=== PATIENT | male | born 1980 | race Caucasian/White ===

== ENCOUNTER 2020-07-27 16:46 | Outpatient (CLI) | payer OTHER ==
[2020-07-27 17:28] LABS: BASOPHILS % (AUTO) 0.9 % (0.0-2.0); EOSINOPHILS # (AUTO) 0.2 K/uL (0.0-0.4); EOSINOPHILS % (AUTO) 3.8 % (0.0-4.0); HEMATOCRIT 40.1 % (36-54); HEMOGLOBIN 13.3 g/dL (14.0-18.0); LYMPHOCYTES # (AUTO) 1.3 K/uL (1.0-5.5); LYMPHOCYTES % (AUTO) 24.1 % (20.5-51.5); MEAN CORPUSCULAR HEMOGLOBIN 26 pg (27-31); MEAN CORPUSCULAR HGB CONC 33 % (32-36); MEAN CORPUSCULAR VOLUME 78 fL (79.0-98.0); MONOCYTES # (AUTO) 0.4 K/uL (0.0-1.0); MONOCYTES % (AUTO) 7.7 % (1.7-9.3); NEUTROPHILS # (AUTO) 3.5 K/uL (1.8-7.7); NEUTROPHILS % (AUTO) 63.5 % (40.0-70.0); PLATELET COUNT (AUTO) 213 K/uL (130-430); RED BLOOD CELL COUNT(AUTO) 5.14 MIL/uL (4.2-6.2); RED CELL DISTRIBUTION WIDTH 13.6 % (9.0-15.0); WHITE BLOOD COUNT (AUTO) 5.6 K/uL (4.8-10.8)
[2020-07-27 17:51] LABS: INR 0.9 (0.80-1.20); PROTHROMBIN TIME 9.3 SECS (9.5-12.5)
[2020-07-27 17:59] LABS: D-DIMER < 100 ng/mL (0-400)
[2020-07-27 18:13] LABS: CALCIUM 8.1 mg/dL (8.4-11.0); CREATININE 1.27 mg/dL (0.55-1.30); POTASSIUM 4.3 mmol/L (3.5-5.1)
== END 2020-07-27 19:48 | disposition home or self-care (01) ==
LOC: SLB 16:46
PROVIDERS: ATTEND Internal Medicine
DX: I82.409 Acute embolism and thrombosis of unspecified deep veins of unspecified lower extremity (principal)
CPT/HCPCS: 36415; 80048; 85025; 85379; 85610-TC; 85730-TC

== ENCOUNTER 2020-07-30 12:27 | Outpatient (CLI) | payer OTHER ==
[2020-07-30 13:10] LABS: BASOPHILS % (AUTO) 0.6 % (0.0-2.0); EOSINOPHILS # (AUTO) 0.2 K/uL (0.0-0.4); EOSINOPHILS % (AUTO) 3.2 % (0.0-4.0); HEMOGLOBIN 13.4 g/dL (14.0-18.0); LYMPHOCYTES # (AUTO) 1.3 K/uL (1.0-5.5); LYMPHOCYTES % (AUTO) 19.1 % (20.5-51.5); MEAN CORPUSCULAR HEMOGLOBIN 26 pg (27-31); MEAN CORPUSCULAR HGB CONC 34 % (32-36); MEAN CORPUSCULAR VOLUME 78 fL (79.0-98.0); MONOCYTES # (AUTO) 0.4 K/uL (0.0-1.0); MONOCYTES % (AUTO) 6.2 % (1.7-9.3); NEUTROPHILS % (AUTO) 70.9 % (40.0-70.0); PLATELET COUNT (AUTO) 214 K/uL (130-430); RED BLOOD CELL COUNT(AUTO) 5.15 MIL/uL (4.2-6.2); RED CELL DISTRIBUTION WIDTH 13.6 % (9.0-15.0)
[2020-07-30 13:51] LABS: CALCIUM 8.5 mg/dL (8.4-11.0); CREATININE 1.19 mg/dL (0.55-1.30); POTASSIUM 4.1 mmol/L (3.5-5.1); THYROID STIMULATING HORMONE 1.88 uIu/mL (0.36-3.74); TOTAL BILIRUBIN 0.3 mg/dL (0.0-1.0)
[2020-07-31 08:06] LABS: PROSTATE SPECIFIC AG 0.5 ng/mL (0.0-4.0)
== END 2020-07-30 18:46 | disposition home or self-care (01) ==
LOC: SLB 12:27
PROVIDERS: ATTEND Internal Medicine
DX: Z00.00 Encounter for general adult medical examination without abnormal findings (principal); M79.662 Pain in left lower leg; M79.661 Pain in right lower leg
CPT/HCPCS: 36415; 80053; 80061; 82306; 82607; 83036; 84153; 84403; 84443-TC; 85025; 93970

== ENCOUNTER 2020-08-31 14:45 | Outpatient (CLI) | payer OTHER | END 2020-08-31 20:15 | disposition home or self-care (01) | LOC: SUS 14:45 | PROVIDERS: ATTEND Internal Medicine | DX: I70.292 Other atherosclerosis of native arteries of extremities, left leg (principal); I70.291 Other atherosclerosis of native arteries of extremities, right leg | CPT/HCPCS: 93923 ==

== ENCOUNTER 2020-09-28 15:00 | Outpatient (CLI) | payer OTHER ==
[2020-09-28] MEDS ORDERED: IOHEXOL 350 mgI/mL, 150 ML INFUS..BTL IV ONE (16:20)
[2020-09-28 16:46] LABS: ALBUMIN 1.9 g/dL (3.4-4.8); CREATININE 1.09 mg/dL (0.55-1.30); TOTAL BILIRUBIN 0.3 mg/dL (0.0-1.0)
== END 2020-09-28 20:07 | disposition home or self-care (01) ==
LOC: SLB 15:00
PROVIDERS: ATTEND Internal Medicine
DX: I70.0 Atherosclerosis of aorta (principal); I73.9 Peripheral vascular disease, unspecified
CPT/HCPCS: 36415; 75635; 80053; 80061; Q9967; 76376

== ENCOUNTER 2020-12-03 09:53 | Outpatient (CLI) | payer OTHER ==
[2020-12-03 10:43] LABS: BASOPHILS # (AUTO) 0.1 K/uL (0.0-0.2); BASOPHILS % (AUTO) 0.9 % (0.0-2.0); EOSINOPHILS # (AUTO) 0.2 K/uL (0.0-0.4); EOSINOPHILS % (AUTO) 3.2 % (0.0-4.0); HEMATOCRIT 35.6 % (36-54); LYMPHOCYTES # (AUTO) 1.4 K/uL (1.0-5.5); LYMPHOCYTES % (AUTO) 22.2 % (20.5-51.5); MEAN CORPUSCULAR HEMOGLOBIN 26 pg (27-31); MEAN CORPUSCULAR HGB CONC 34 % (32-36); MEAN CORPUSCULAR VOLUME 78 fL (79.0-98.0); MONOCYTES # (AUTO) 0.5 K/uL (0.0-1.0); MONOCYTES % (AUTO) 7.1 % (1.7-9.3); NEUTROPHILS # (AUTO) 4.3 K/uL (1.8-7.7); NEUTROPHILS % (AUTO) 66.6 % (40.0-70.0); PLATELET COUNT (AUTO) 192 K/uL (130-430); RED CELL DISTRIBUTION WIDTH 14.7 % (9.0-15.0); WHITE BLOOD COUNT (AUTO) 6.5 K/uL (4.8-10.8)
[2020-12-03 10:56] LABS: ALBUMIN 1.6 g/dL (3.4-4.8); CREATININE 1.68 mg/dL (0.55-1.30); POTASSIUM 4.9 mmol/L (3.5-5.1); TOTAL BILIRUBIN 0.2 mg/dL (0.0-1.0)
== END 2020-12-03 20:25 | disposition home or self-care (01) ==
LOC: SLB 09:53
PROVIDERS: ATTEND Internal Medicine
DX: E11.9 Type 2 diabetes mellitus without complications (principal); D64.9 Anemia, unspecified; N17.9 Acute kidney failure, unspecified
CPT/HCPCS: 36415; 80053; 83036; 85025

== ENCOUNTER 2021-01-02 10:07 | Outpatient (CLI) | payer OTHER ==
[2021-01-02 10:32] LABS: BILIRUBIN,URINE NEGATIVE (NEGATIVE); BLOOD, URINE 3+ (NEGATIVE); CLARITY/URINE CLEAR (CLEAR); COLOR,URINE YELLOW (YELLOW); GLUCOSE,URINE 3+ (NEGATIVE); KETONES,URINE NEGATIVE (NEGATIVE); LEUKOCYTE ESTERASE ,URINE NEGATIVE (NEGATIVE); NITRITE, URINE NEGATIVE (NEGATIVE); PROTEIN URINE 3+ (NEGATIVE); UROBILINOGEN,URINE 0.2 (0.2-1.0)
[2021-01-02 10:34] LABS: BASOPHILS # (AUTO) 0.1 K/uL (0.0-0.2); BASOPHILS % (AUTO) 0.8 % (0.0-2.0); EOSINOPHILS # (AUTO) 0.3 K/uL (0.0-0.4); EOSINOPHILS % (AUTO) 4.7 % (0.0-4.0); HEMOGLOBIN 11.4 g/dL (14.0-18.0); LYMPHOCYTES # (AUTO) 1.5 K/uL (1.0-5.5); LYMPHOCYTES % (AUTO) 23.3 % (20.5-51.5); MEAN CORPUSCULAR HEMOGLOBIN 26 pg (27-31); MEAN CORPUSCULAR HGB CONC 33 % (32-36); MEAN CORPUSCULAR VOLUME 79 fL (79.0-98.0); MONOCYTES # (AUTO) 0.6 K/uL (0.0-1.0); MONOCYTES % (AUTO) 8.7 % (1.7-9.3); NEUTROPHILS # (AUTO) 3.9 K/uL (1.8-7.7); NEUTROPHILS % (AUTO) 62.5 % (40.0-70.0); PLATELET COUNT (AUTO) 179 K/uL (130-430); RED BLOOD CELL COUNT(AUTO) 4.31 MIL/uL (4.2-6.2); RED CELL DISTRIBUTION WIDTH 14.4 % (9.0-15.0); WHITE BLOOD COUNT (AUTO) 6.3 K/uL (4.8-10.8)
[2021-01-02 10:49] LABS: ALBUMIN 1.6 g/dL (3.4-4.8); BILIRUBIN,DIRECT 0.1 mg/dL (0.0-0.3); CALCIUM 7.6 mg/dL (8.4-11.0); CREATININE 1.6 mg/dL (0.55-1.30); POTASSIUM 4.4 mmol/L (3.5-5.1); TOTAL BILIRUBIN 0.2 mg/dL (0.0-1.0); URIC ACID 5.7 mg/dL (2.4-7.0)
[2021-01-02 10:59] LABS: BACTERIA,URINE RARE /HPF (None Seen); HYALINE CASTS, URINE 0-10 /LPF (None Seen); WBC,URINE 0-3 /HPF (0-3)
[2021-01-02 11:22] LABS: CKMB RELATIVE INDEX 0.6 (0.0-2.9); CREATINE KINASE MB 2.3 ng/mL (0-3.6)
== END 2021-01-02 19:56 | disposition home or self-care (01) ==
LOC: SLB 10:07
PROVIDERS: ATTEND Internal Medicine
DX: E11.65 Type 2 diabetes mellitus with hyperglycemia (principal); I10 Essential (primary) hypertension; E78.5 Hyperlipidemia, unspecified; E66.3 Overweight; E55.9 Vitamin D deficiency, unspecified
CPT/HCPCS: 36415; 80053; 80061; 81000; 82248; 82306; 82550; 84100; 84403; 84550; 85025

== ENCOUNTER 2021-02-02 13:09 | Outpatient (CLI) | payer OTHER | END 2021-02-02 15:47 | disposition home or self-care (01) | LOC: SUS 13:09 | PROVIDERS: ATTEND Internal Medicine | DX: E11.21 Type 2 diabetes mellitus with diabetic nephropathy (principal); N32.89 Other specified disorders of bladder | CPT/HCPCS: 76770 ==

== ENCOUNTER 2021-02-25 07:57 | Outpatient (CLI) | payer OTHER ==
[2021-02-25 08:43] LABS: BASOPHILS % (AUTO) 0.4 % (0.0-2.0); EOSINOPHILS # (AUTO) 0.2 K/uL (0.0-0.4); EOSINOPHILS % (AUTO) 2.8 % (0.0-4.0); HEMATOCRIT 33.3 % (36-54); HEMOGLOBIN 11.3 g/dL (14.0-18.0); LYMPHOCYTES # (AUTO) 1.7 K/uL (1.0-5.5); LYMPHOCYTES % (AUTO) 23.2 % (20.5-51.5); MEAN CORPUSCULAR HEMOGLOBIN 26 pg (27-31); MEAN CORPUSCULAR HGB CONC 34 % (32-36); MEAN CORPUSCULAR VOLUME 77 fL (79.0-98.0); MONOCYTES # (AUTO) 0.6 K/uL (0.0-1.0); MONOCYTES % (AUTO) 8.4 % (1.7-9.3); NEUTROPHILS # (AUTO) 4.7 K/uL (1.8-7.7); NEUTROPHILS % (AUTO) 65.2 % (40.0-70.0); PLATELET COUNT (AUTO) 216 K/uL (130-430); RED CELL DISTRIBUTION WIDTH 14.5 % (9.0-15.0); WHITE BLOOD COUNT (AUTO) 7.2 K/uL (4.8-10.8)
[2021-02-25 09:03] LABS: ALBUMIN 1.5 g/dL (3.4-4.8); CREATININE 1.51 mg/dL (0.55-1.30); PHOSPHORUS 3.8 mg/dL (2.7-4.5); POTASSIUM 3.2 mmol/L (3.5-5.1); TOTAL BILIRUBIN 0.2 mg/dL (0.0-1.0)
[2021-02-25 09:10] LABS: BILIRUBIN,URINE NEGATIVE (NEGATIVE); BLOOD, URINE 2+ (NEGATIVE); CLARITY/URINE CLEAR (CLEAR); COLOR,URINE YELLOW (YELLOW); GLUCOSE,URINE 3+ (NEGATIVE); KETONES,URINE NEGATIVE (NEGATIVE); LEUKOCYTE ESTERASE ,URINE NEGATIVE (NEGATIVE); NITRITE, URINE NEGATIVE (NEGATIVE); PROTEIN URINE 3+ (NEGATIVE); UROBILINOGEN,URINE 0.2 (0.2-1.0)
[2021-02-25 09:25] LABS: BACTERIA,URINE RARE /HPF (None Seen); WBC,URINE 0-3 /HPF (0-3)
== END 2021-02-25 21:41 | disposition home or self-care (01) ==
LOC: SLB 07:57
PROVIDERS: ATTEND Internal Medicine
DX: I12.9 Hypertensive chronic kidney disease with stage 1 through stage 4 chronic kidney disease, or unspecified chronic kidney disease (principal); E11.22 Type 2 diabetes mellitus with diabetic chronic kidney disease; N18.30 Chronic kidney disease, stage 3 unspecified
CPT/HCPCS: 36415; 80053; 81000; 82043; 82570; 83036; 83735; 84100; 84302; 85025

== ENCOUNTER 2021-04-02 11:37 | Outpatient (CLI) | payer OTHER ==
[2021-04-02 12:37] LABS: BASOPHILS # (AUTO) 0.1 K/uL (0.0-0.2); BASOPHILS % (AUTO) 0.7 % (0.0-2.0); EOSINOPHILS # (AUTO) 0.2 K/uL (0.0-0.4); EOSINOPHILS % (AUTO) 3.1 % (0.0-4.0); HEMOGLOBIN 11.5 g/dL (14.0-18.0); LYMPHOCYTES # (AUTO) 1.3 K/uL (1.0-5.5); LYMPHOCYTES % (AUTO) 17.2 % (20.5-51.5); MEAN CORPUSCULAR HEMOGLOBIN 27 pg (27-31); MEAN CORPUSCULAR HGB CONC 34 % (32-36); MEAN CORPUSCULAR VOLUME 78 fL (79.0-98.0); MONOCYTES # (AUTO) 0.5 K/uL (0.0-1.0); MONOCYTES % (AUTO) 6.5 % (1.7-9.3); NEUTROPHILS # (AUTO) 5.5 K/uL (1.8-7.7); NEUTROPHILS % (AUTO) 72.5 % (40.0-70.0); PLATELET COUNT (AUTO) 174 K/uL (130-430); RED BLOOD CELL COUNT(AUTO) 4.34 MIL/uL (4.2-6.2); RED CELL DISTRIBUTION WIDTH 14.7 % (9.0-15.0); WHITE BLOOD COUNT (AUTO) 7.6 K/uL (4.8-10.8)
== END 2021-04-02 14:00 | disposition home or self-care (01) ==
LOC: SLB 11:37
PROVIDERS: ATTEND Internal Medicine
DX: E11.9 Type 2 diabetes mellitus without complications (principal); D64.9 Anemia, unspecified
CPT/HCPCS: 36415; 83036; 85025

== ENCOUNTER 2021-05-01 19:41 | Emergency (ER) | payer OTHER ==
[~2021-05-01] VITALS: Ht 177.8 cm; Wt 72.1 kg
[2021-05-01 20:06] VITALS: BP_SYST 148
--- NOTE | 2021-05-01 20:06 | NUR ---
PATIENT TRIAGED AND PLACED IN WAITING ROOM. VSS. NO VISUAL DISTRESS AT THIS TIME.
--- NOTE | 2021-05-01 20:12 | NUR ---
DR. ISAACS AT BEDSIDE FOR EVALUATION.
--- NOTE | 2021-05-01 20:30 | NUR ---
PATIENT AAOX4 AND AMBULATORY FROM HOME C/O S/P FALL YESTERDAY, STATES MISSED A STEP + SWELLING. CURRENTLY STATING 8/10 ON THE PAIN SCALE. VSS.
[2021-05-01] MEDS ORDERED: IBUP-1969 PO (21:59)
[2021-05-01] MEDS ORDERED: HYDROcodone/ACETAMIN 5-325 MG TAB (NORCO/ VICODIN) PO ONE (22:00)
--- NOTE | 2021-05-01 22:00 | NUR ---
SPLINT PLACED TO RIGHT HAND. PULSES WNL.
[2021-05-01 22:11] VITALS: BP_SYST 148
--- NOTE | 2021-05-01 22:18 | NUR ---
Patient given written and verbal discharge instructions and verbalizes understanding. DR. SHITAL REGALADO MD discussed with patient the results and treatment provided. Patient in stable condition. ID arm band removed. Rx of IBUPROFEN given. Patient educated on pain management and to follow up with PMD. Pain Scale 0/10. Opportunity for questions provided and answered. Medication side effect fact sheet provided.
== END 2021-05-01 22:18 | disposition home or self-care (01) ==
LOC: SED 19:41
DX: S62.231A Other displaced fracture of base of first metacarpal bone, right hand, initial encounter for closed fracture (principal); W10.9XXA Fall (on) (from) unspecified stairs and steps, initial encounter; Y93.89 Activity, other specified; Y92.89 Other specified places as the place of occurrence of the external cause; Y99.8 Other external cause status
CPT/HCPCS: 99283

== ENCOUNTER 2021-06-04 14:57 | Outpatient (CLI) | payer OTHER ==
[~2021-06-04 14:57] MED LIST: IBUP-1969 PO
[2021-06-04 16:04] LABS: BASOPHILS # (AUTO) 0.1 K/uL (0.0-0.2); BASOPHILS % (AUTO) 0.9 % (0.0-2.0); EOSINOPHILS # (AUTO) 0.2 K/uL (0.0-0.4); EOSINOPHILS % (AUTO) 2.6 % (0.0-4.0); HEMATOCRIT 33.6 % (36-54); HEMOGLOBIN 11.1 g/dL (14.0-18.0); LYMPHOCYTES % (AUTO) 16.7 % (20.5-51.5); MEAN CORPUSCULAR HEMOGLOBIN 26 pg (27-31); MEAN CORPUSCULAR HGB CONC 33 % (32-36); MEAN CORPUSCULAR VOLUME 79 fL (79.0-98.0); MONOCYTES # (AUTO) 0.4 K/uL (0.0-1.0); MONOCYTES % (AUTO) 6.4 % (1.7-9.3); NEUTROPHILS # (AUTO) 4.5 K/uL (1.8-7.7); NEUTROPHILS % (AUTO) 73.4 % (40.0-70.0); PLATELET COUNT (AUTO) 192 K/uL (130-430); RED BLOOD CELL COUNT(AUTO) 4.23 MIL/uL (4.2-6.2); RED CELL DISTRIBUTION WIDTH 14.6 % (9.0-15.0); WHITE BLOOD COUNT (AUTO) 6.2 K/uL (4.8-10.8)
[2021-06-04 16:09] LABS: BILIRUBIN,URINE NEGATIVE (NEGATIVE); BLOOD, URINE 2+ (NEGATIVE); COLOR,URINE YELLOW (YELLOW); GLUCOSE,URINE 1+ (NEGATIVE); KETONES,URINE NEGATIVE (NEGATIVE); LEUKOCYTE ESTERASE ,URINE NEGATIVE (NEGATIVE); NITRITE, URINE NEGATIVE (NEGATIVE); PROTEIN URINE 2+ (NEGATIVE); UROBILINOGEN,URINE 0.2 (0.2-1.0)
[2021-06-04 16:25] LABS: CALCIUM 8.3 mg/dL (8.4-11.0); CREATININE 2.02 mg/dL (0.55-1.30); POTASSIUM 4.2 mmol/L (3.5-5.1); URIC ACID 5.6 mg/dL (2.4-7.0)
[2021-06-04 16:51] LABS: CLARITY/URINE HAZY (CLEAR)
[2021-06-04 16:55] LABS: WBC,URINE 0-3 /HPF (0-3)
[2021-06-04 16:56] LABS: BACTERIA,URINE FEW /HPF (None Seen)
== END 2021-06-04 20:27 | disposition home or self-care (01) ==
LOC: SLB 14:57
PROVIDERS: ATTEND Internal Medicine
DX: D64.9 Anemia, unspecified (principal)
CPT/HCPCS: 36415; 80048; 81000; 82607; 83540; 83550; 83880; 84550; 85025

== ENCOUNTER 2021-08-03 17:42 | Emergency (ER) | payer OTHER, SELFPAY ==
[~2021-08-03] VITALS: Ht 177.8 cm; Wt 78.5 kg
--- NOTE | 2021-08-03 17:50 | NUR ---
BROUGHT BACK TO HALLWAY BED AND TRIAGED. REPORT GIVEN TO DARLIN
[2021-08-03] MEDS ORDERED: POLYTRIM EACH EYE (17:59)
[2021-08-03] MEDS ORDERED: IBUP-1969 PO (17:59)
[2021-08-03] MEDS ORDERED: CEPH250C PO (17:59)
[2021-08-03 18:00] VITALS: BP_SYST 179
--- NOTE | 2021-08-03 18:00 | NUR ---
DR BAILEY AT BEDSIDE FOR EVALUATION
--- NOTE | 2021-08-03 18:20 | NUR ---
pt. came in with swelling to left eye, states woke up this morning and it was swollen and has worsened through the day, vision blurry in that eye, states it is uncomfortable but not painful
[2021-08-03 19:31] VITALS: BP_SYST 152
--- NOTE | 2021-08-03 19:31 | NUR ---
Patient given written and verbal discharge instructions and verbalizes understanding. ER MD discussed with patient the results and treatment provided. Patient in stable condition. ID arm band removed. Rx of KEFLEX, IBUPROFEN, POLYTRIM given. Patient educated on pain management and to follow up with PMD. Pain Scale 0/10 Opportunity for questions provided and answered. Medication side effect fact sheet provided.
== END 2021-08-03 19:31 | disposition home or self-care (01) ==
LOC: SED 17:42
DX: H01.004 Unspecified blepharitis left upper eyelid (principal); Z79.899 Other long term (current) drug therapy
CPT/HCPCS: 82962; 99283

== ENCOUNTER 2021-08-13 09:19 | Outpatient (CLI) | payer OTHER ==
[~2021-08-13 09:19] MED LIST changes: +CEPH250C PO; +POLYTRIM EACH EYE
[2021-08-13 10:43] LABS: ALBUMIN 1.7 g/dL (3.4-4.8); BASOPHILS # (AUTO) 0.1 K/uL (0.0-0.2); BASOPHILS % (AUTO) 0.9 % (0.0-2.0); CALCIUM 7.6 mg/dL (8.4-11.0); CREATININE 2.27 mg/dL (0.55-1.30); EOSINOPHILS # (AUTO) 0.3 K/uL (0.0-0.4); EOSINOPHILS % (AUTO) 5.4 % (0.0-4.0); HEMATOCRIT 29.6 % (36-54); HEMOGLOBIN 9.6 g/dL (14.0-18.0); LYMPHOCYTES # (AUTO) 1.4 K/uL (1.0-5.5); LYMPHOCYTES % (AUTO) 22.9 % (20.5-51.5); MEAN CORPUSCULAR HEMOGLOBIN 26 pg (27-31); MEAN CORPUSCULAR HGB CONC 32 % (32-36); MEAN CORPUSCULAR VOLUME 80 fL (79.0-98.0); MONOCYTES # (AUTO) 0.5 K/uL (0.0-1.0); MONOCYTES % (AUTO) 7.5 % (1.7-9.3); NEUTROPHILS % (AUTO) 63.3 % (40.0-70.0); PLATELET COUNT (AUTO) 210 K/uL (130-430); RED BLOOD CELL COUNT(AUTO) 3.71 MIL/uL (4.2-6.2); RED CELL DISTRIBUTION WIDTH 15.5 % (9.0-15.0); TOTAL BILIRUBIN 0.1 mg/dL (0.0-1.0); WHITE BLOOD COUNT (AUTO) 6.3 K/uL (4.8-10.8)
== END 2021-08-14 19:28 | disposition home or self-care (01) ==
LOC: SLB 09:19
PROVIDERS: ATTEND Internal Medicine
DX: E11.65 Type 2 diabetes mellitus with hyperglycemia (principal); E11.21 Type 2 diabetes mellitus with diabetic nephropathy; E78.5 Hyperlipidemia, unspecified; N04.0 Nephrotic syndrome with minor glomerular abnormality; I10 Essential (primary) hypertension
CPT/HCPCS: 36415; 80053; 80061; 82306; 82607; 83036; 85025

== ENCOUNTER 2021-12-03 06:41 | Outpatient (CLI) | payer OTHER ==
[2021-12-03 07:37] LABS: BILIRUBIN,URINE NEGATIVE (NEGATIVE); BLOOD, URINE 2+ (NEGATIVE); CLARITY/URINE CLEAR (CLEAR); COLOR,URINE YELLOW (YELLOW); GLUCOSE,URINE 2+ (NEGATIVE); KETONES,URINE NEGATIVE (NEGATIVE); LEUKOCYTE ESTERASE ,URINE NEGATIVE (NEGATIVE); NITRITE, URINE NEGATIVE (NEGATIVE); PROTEIN URINE 3+ (NEGATIVE); UROBILINOGEN,URINE 0.2 (0.2-1.0)
[2021-12-03 08:17] LABS: ALANINE AMINOTRANSFERASE 29 U/L (12-78); ALBUMIN 1.8 g/dL (3.4-4.8); ANION GAP 8 (5-15); ASPARTATE AMINOTRANSFERASE 24 U/L (10-37); CALCIUM 7.1 mg/dL (8.4-11.0); CHLORIDE 110 mmol/L (98-107); CREATININE 3.28 mg/dL (0.55-1.30); GLUCOSE 93 mg/dL (70-99); POTASSIUM 4.2 mmol/L (3.5-5.1); SODIUM SERUM 138 mmol/L (136-145); THYROID STIMULATING HORMONE 2.65 uIu/mL (0.36-3.74); TOTAL BILIRUBIN < 0.1 mg/dL (0.0-1.0); UREA NITROGEN, BLOOD 55 mg/dL (8-21)
[2021-12-03 08:18] LABS: GFR AFRICAN AMERICAN 27 mL/min (>90)
[2021-12-03 08:21] LABS: TRIGLYCERIDES 60 mg/dL (30-150)
[2021-12-03 08:22] LABS: CHOLESTEROL 234 mg/dL (<200); HDL CHOLESTEROL 75 mg/dL (>45); LDL CHOLESTEROL 131 mg/dL (<100)
[2021-12-03 08:34] LABS: BASOPHILS # (AUTO) 0.1 K/uL (0.0-0.2); BASOPHILS % (AUTO) 0.9 % (0.0-2.0); EOSINOPHILS # (AUTO) 0.5 K/uL (0.0-0.4); EOSINOPHILS % (AUTO) 6.3 % (0.0-4.0); HEMATOCRIT 30.9 % (36-54); HEMOGLOBIN 10.1 g/dL (14.0-18.0); LYMPHOCYTES # (AUTO) 1.9 K/uL (1.0-5.5); LYMPHOCYTES % (AUTO) 26.4 % (20.5-51.5); MEAN CORPUSCULAR HEMOGLOBIN 26 pg (27-31); MEAN CORPUSCULAR HGB CONC 33 % (32-36); MEAN CORPUSCULAR VOLUME 78 fL (79.0-98.0); MONOCYTES # (AUTO) 0.5 K/uL (0.0-1.0); MONOCYTES % (AUTO) 6.9 % (1.7-9.3); NEUTROPHILS # (AUTO) 4.2 K/uL (1.8-7.7); NEUTROPHILS % (AUTO) 59.5 % (40.0-70.0); PLATELET COUNT (AUTO) 182 K/uL (130-430); RED BLOOD CELL COUNT(AUTO) 3.94 MIL/uL (4.2-6.2); RED CELL DISTRIBUTION WIDTH 15.8 % (9.0-15.0); WHITE BLOOD COUNT (AUTO) 7.1 K/uL (4.8-10.8)
[2021-12-03 09:55] LABS: BACTERIA,URINE FEW /HPF (None Seen); MUCUS,URINE 1+ /LPF (None Seen)
== END 2021-12-03 20:48 | disposition home or self-care (01) ==
LOC: SLB 06:41
PROVIDERS: ATTEND Specialist
DX: I12.9 Hypertensive chronic kidney disease with stage 1 through stage 4 chronic kidney disease, or unspecified chronic kidney disease (principal); E11.22 Type 2 diabetes mellitus with diabetic chronic kidney disease; N18.32 Chronic kidney disease, stage 3b; E78.2 Mixed hyperlipidemia; R60.0 Localized edema
CPT/HCPCS: 36415; 80053; 80061; 81000; 83036; 84439; 84443; 85025

== ENCOUNTER 2021-12-12 20:38 | Emergency (ER) | payer OTHER ==
[~2021-12-12] VITALS: Ht 177.8 cm; Wt 89.8 kg
[2021-12-12 21:07] VITALS: BP_SYST 160
--- NOTE | 2021-12-12 21:55 | NUR ---
Patient to ER bed 07 to gown for evaluation. Side rails up. Report given to SAMAN FLANAGAN
--- NOTE | 2021-12-12 22:11 | NUR ---
41 y/o M, ambulated to ED s/p fall. Pt tripped and landed on R forearm. Able to move extremity, but is c/o pain during movement. Appears in no acute distress. Breathing adequately on RA. at bedside.
[2021-12-12] MEDS ORDERED: OXYCODONE/ACETAMINOPHEN 5-325 TABLET PO ONE (23:30)
--- NOTE | 2021-12-12 23:45 | NUR ---
FABRICIO Marshall at bedside examining patient.
[2021-12-12] MEDS ORDERED: HYDR-3927 PO (23:53)
[2021-12-12] MEDS ORDERED: IBUP-1969 PO (23:53)
--- NOTE | 2021-12-13 00:12 | NUR ---
Patient given written and verbal discharge instructions and verbalizes understanding. ER MD Mcdowell discussed with patient the results and treatment provided. Patient in stable condition. ID arm band removed. Rx of [place] and Ibuprofen sent to pharmacy of choice. Patient educated on pain management and to follow up with PMD. Opportunity for questions provided and answered. Medication side effect fact sheet provided.
[2021-12-13 00:14] VITALS: BP_SYST 149
== END 2021-12-13 00:14 | disposition home or self-care (01) ==
LOC: SED 20:38
DX: S52.521A Torus fracture of lower end of right radius, initial encounter for closed fracture (principal); Z79.899 Other long term (current) drug therapy; W01.0XXA Fall on same level from slipping, tripping and stumbling without subsequent striking against object, initial encounter; Y93.89 Activity, other specified; Y92.89 Other specified places as the place of occurrence of the external cause; Y99.8 Other external cause status
CPT/HCPCS: 73090; 99283

== ENCOUNTER 2022-03-03 11:19 | Outpatient (CLI) | payer OTHER ==
[~2022-03-03 11:19] MED LIST changes: +HYDR-3927 PO
[2022-03-03 12:11] LABS: BASOPHILS # (AUTO) 0.1 K/uL (0.0-0.2); BASOPHILS % (AUTO) 0.9 % (0.0-2.0); EOSINOPHILS # (AUTO) 0.5 K/uL (0.0-0.4); EOSINOPHILS % (AUTO) 7.8 % (0.0-4.0); HEMATOCRIT 28.4 % (36-54); HEMOGLOBIN 9.3 g/dL (14.0-18.0); LYMPHOCYTES # (AUTO) 1.2 K/uL (1.0-5.5); LYMPHOCYTES % (AUTO) 18.9 % (20.5-51.5); MEAN CORPUSCULAR HEMOGLOBIN 26 pg (27-31); MEAN CORPUSCULAR HGB CONC 33 % (32-36); MEAN CORPUSCULAR VOLUME 79 fL (79.0-98.0); MONOCYTES # (AUTO) 0.5 K/uL (0.0-1.0); MONOCYTES % (AUTO) 7.6 % (1.7-9.3); NEUTROPHILS # (AUTO) 4.2 K/uL (1.8-7.7); NEUTROPHILS % (AUTO) 64.8 % (40.0-70.0); PLATELET COUNT (AUTO) 175 K/uL (130-430); RED BLOOD CELL COUNT(AUTO) 3.61 MIL/uL (4.2-6.2); WHITE BLOOD COUNT (AUTO) 6.4 K/uL (4.8-10.8)
[2022-03-03 12:30] LABS: ALBUMIN 1.6 g/dL (3.4-4.8); CALCIUM 7.8 mg/dL (8.4-11.0); CREATININE 4.05 mg/dL (0.55-1.30); POTASSIUM 4.8 mmol/L (3.5-5.1); THYROID STIMULATING HORMONE 3.65 uIu/mL (0.36-3.74); TOTAL BILIRUBIN 0.1 mg/dL (0.0-1.0)
[2022-03-06 15:31] LABS: HEMOGLOBIN A1C 6.8 % (4.8-5.6)
== END 2022-03-03 19:07 | disposition home or self-care (01) ==
LOC: SLB 11:19
PROVIDERS: ATTEND Internal Medicine
DX: E11.21 Type 2 diabetes mellitus with diabetic nephropathy (principal); N04.0 Nephrotic syndrome with minor glomerular abnormality; E03.9 Hypothyroidism, unspecified; E55.9 Vitamin D deficiency, unspecified; E11.649 Type 2 diabetes mellitus with hypoglycemia without coma
CPT/HCPCS: 36415; 80053; 80061; 82306; 82607; 83036; 84443; 85025

== ENCOUNTER 2022-06-10 08:24 | Outpatient (CLI) | payer OTHER ==
[2022-06-10 09:27] LABS: BASOPHILS # (AUTO) 0.1 K/uL (0.0-0.2); BASOPHILS % (AUTO) 0.9 % (0.0-2.0); EOSINOPHILS # (AUTO) 0.6 K/uL (0.0-0.4); HEMATOCRIT 26.2 % (36-54); HEMOGLOBIN 8.5 g/dL (14.0-18.0); LYMPHOCYTES # (AUTO) 0.8 K/uL (1.0-5.5); LYMPHOCYTES % (AUTO) 14.7 % (20.5-51.5); MEAN CORPUSCULAR HEMOGLOBIN 26 pg (27-31); MEAN CORPUSCULAR HGB CONC 32 % (32-36); MEAN CORPUSCULAR VOLUME 79 fL (79.0-98.0); MONOCYTES # (AUTO) 0.5 K/uL (0.0-1.0); MONOCYTES % (AUTO) 8.9 % (1.7-9.3); NEUTROPHILS # (AUTO) 3.7 K/uL (1.8-7.7); NEUTROPHILS % (AUTO) 65.5 % (40.0-70.0); PLATELET COUNT (AUTO) 151 K/uL (130-430); RED BLOOD CELL COUNT(AUTO) 3.31 MIL/uL (4.2-6.2); RED CELL DISTRIBUTION WIDTH 15.7 % (9.0-15.0); WHITE BLOOD COUNT (AUTO) 5.6 K/uL (4.8-10.8)
[2022-06-10 09:47] LABS: ALBUMIN 1.9 g/dL (3.4-4.8); CALCIUM 7.2 mg/dL (8.4-11.0); CREATININE 5.75 mg/dL (0.55-1.30); THYROID STIMULATING HORMONE 3.13 uIu/mL (0.34-4.82); TOTAL BILIRUBIN 0.2 mg/dL (0.0-1.0)
== END 2022-06-10 19:53 | disposition home or self-care (01) ==
LOC: SLB 08:24
PROVIDERS: ATTEND Internal Medicine
DX: E11.65 Type 2 diabetes mellitus with hyperglycemia (principal); E78.5 Hyperlipidemia, unspecified; E11.21 Type 2 diabetes mellitus with diabetic nephropathy; N04.0 Nephrotic syndrome with minor glomerular abnormality; I10 Essential (primary) hypertension
CPT/HCPCS: 36415; 80053; 80061; 83036; 84443; 85025

== ENCOUNTER 2022-06-13 11:07 | Inpatient (IN) | payer OTHER ==
[2022-06-13] MEDS ORDERED: INSULIN REGULAR, HUMAN 100 UNITS/ML, 3 ML VIAL (humuLIN R) SUBCUT PRN (17:15)
[2022-06-13] MEDS ORDERED: DEXTROSE 50% JECT 50 ML DISP.SYRIN IVP PRN (17:15)
[2022-06-13] MEDS ORDERED: SITA100T11 PO (20:34)
[2022-06-13] MEDS ORDERED: CETI1TAB2 PO (20:34)
[2022-06-13] MEDS ORDERED: ROSU40TA PO (20:34)
[2022-06-13] MEDS ORDERED: GLIP5TAB26 PO (20:34)
[2022-06-13] MEDS ORDERED: CALC0.258 PO (20:34)
[2022-06-13] MEDS ORDERED: COR6.25 PO (20:34)
[2022-06-13] MEDS ORDERED: FURO-149 PO (20:34)
[2022-06-13] MEDS ORDERED: DAPA10TA PO (20:34)
[2022-06-13] MEDS ORDERED: FURO-150 PO (20:34)
[2022-06-13] MEDS ORDERED: FINE10TA PO (20:34)
[2022-06-14 07:51] LABS: BASOPHILS % (AUTO) 0.8 % (0.0-2.0); EOSINOPHILS # (AUTO) 0.4 K/uL (0.0-0.4); EOSINOPHILS % (AUTO) 7.4 % (0.0-4.0); HEMOGLOBIN 7.9 g/dL (14.0-18.0); LYMPHOCYTES # (AUTO) 1.3 K/uL (1.0-5.5); MEAN CORPUSCULAR HEMOGLOBIN 26 pg (27-31); MEAN CORPUSCULAR HGB CONC 33 % (32-36); MEAN CORPUSCULAR VOLUME 78 fL (79.0-98.0); MONOCYTES # (AUTO) 0.6 K/uL (0.0-1.0); MONOCYTES % (AUTO) 10.3 % (1.7-9.3); NEUTROPHILS # (AUTO) 3.4 K/uL (1.8-7.7); NEUTROPHILS % (AUTO) 59.5 % (40.0-70.0); PLATELET COUNT (AUTO) 146 K/uL (130-430); RED BLOOD CELL COUNT(AUTO) 3.07 MIL/uL (4.2-6.2); RED CELL DISTRIBUTION WIDTH 15.6 % (9.0-15.0); WHITE BLOOD COUNT (AUTO) 5.8 K/uL (4.8-10.8)
[2022-06-14 08:12] LABS: CALCIUM 7.6 mg/dL (8.4-11.0); CREATININE 6.26 mg/dL (0.55-1.30); PHOSPHORUS 7.7 mg/dL (2.7-4.5)
[2022-06-14 08:18] LABS: INR 0.9 (0.80-1.20); PROTHROMBIN TIME 9.9 SECS (9.5-12.5)
[2022-06-20] MEDS ORDERED: GLIP5TAB26 PO (13:45)
[2022-06-20] MEDS ORDERED: ASPI-1457 PO (13:45)
[2022-06-20] MEDS ORDERED: NEPH PO (13:45)
[2022-06-20] MEDS ORDERED: SEVE800T8 PO (13:45)
== END 2022-06-20 17:10 | disposition home or self-care (01) | DRG 673 ==
LOC: SMU 20:03
PROVIDERS: ADMIT Internal Medicine; ATTEND Internal Medicine
PROC: 5A1D70Z Performance of Urinary Filtration, Intermittent, Less than 6 Hours Per Day (ICD-10-PCS; principal; 2022-06-15)
PROC: 0JH63XZ Insertion of Tunneled Vascular Access Device into Chest Subcutaneous Tissue and Fascia, Percutaneous Approach (ICD-10-PCS; 2022-06-17)
PROC: 5A1D70Z Performance of Urinary Filtration, Intermittent, Less than 6 Hours Per Day (ICD-10-PCS; 2022-06-17)
PROC: 30233N1 Transfusion of Nonautologous Red Blood Cells into Peripheral Vein, Percutaneous Approach (ICD-10-PCS; 2022-06-17)
PROC: 02H633Z Insertion of Infusion Device into Right Atrium, Percutaneous Approach (ICD-10-PCS; 2022-06-17)
PROC: B5181ZA Fluoroscopy of Superior Vena Cava using Low Osmolar Contrast, Guidance (ICD-10-PCS; 2022-06-17)
PROC: B548ZZA Ultrasonography of Superior Vena Cava, Guidance (ICD-10-PCS; 2022-06-17)
PROC: 5A1D70Z Performance of Urinary Filtration, Intermittent, Less than 6 Hours Per Day (ICD-10-PCS; 2022-06-19)
DX: N17.9 Acute kidney failure, unspecified (principal); E43 Unspecified severe protein-calorie malnutrition; I12.0 Hypertensive chronic kidney disease with stage 5 chronic kidney disease or end stage renal disease; E87.20 Acidosis, unspecified; E78.5 Hyperlipidemia, unspecified; E11.22 Type 2 diabetes mellitus with diabetic chronic kidney disease; N18.6 End stage renal disease; E83.39 Other disorders of phosphorus metabolism; D63.1 Anemia in chronic kidney disease; Z79.899 Other long term (current) drug therapy; Z99.2 Dependence on renal dialysis; Z79.82 Long term (current) use of aspirin
CPT/HCPCS: 36415; 80048; 84100; 85025; 85610-TC; 85730-TC

== ENCOUNTER 2022-06-13 20:03 | Inpatient (IN) | payer OTHER ==
[~2022-06-13] VITALS: Ht 177.8 cm; Wt 86.6 kg
[2022-06-13] MEDS ORDERED: FINE10TA PO (20:34)
[2022-06-13] MEDS ORDERED: CETI1TAB2 PO (20:34)
[2022-06-13] MEDS ORDERED: FURO-150 PO (20:34)
[2022-06-13] MEDS ORDERED: CALC0.258 PO (20:34)
[2022-06-13] MEDS ORDERED: COR6.25 PO (20:34)
[2022-06-13] MEDS ORDERED: SITA100T11 PO (20:34)
[2022-06-13] MEDS ORDERED: FURO-149 PO (20:34)
[2022-06-13] MEDS ORDERED: GLIP5TAB26 PO (20:34)
[2022-06-13] MEDS ORDERED: ROSU40TA PO (20:34)
[2022-06-13] MEDS ORDERED: DAPA10TA PO (20:34)
[2022-06-13 20:37] VITALS: BP_SYST 165
--- NOTE | 2022-06-13 20:45 | NUR ---
Paged Dr Medina for admit order
[2022-06-13] MEDS ORDERED: DEXTROSE 50% JECT 50 ML DISP.SYRIN IVP ONE (21:00)
[2022-06-13] MEDS ORDERED: INSULIN REGULAR, HUMAN 100 UNITS/ML, 3 ML VIAL (humuLIN R) SUBCUT PRN (21:00)
--- NOTE | 2022-06-13 21:09 | NUR ---
Consultation Paged Reason for Consultation: ESRD Was consult called: Y Person who was notified: Ariadne Consulting Physician: Dr. Appiah Ordering Physician: Dr. Medina
[2022-06-13] MEDS ORDERED: LORATADINE 10 MG TABLET PO PRN (21:30)
[2022-06-13 21:47] LABS: BILIRUBIN,URINE NEGATIVE (NEGATIVE); BLOOD, URINE 2+ (NEGATIVE); COLOR,URINE YELLOW (YELLOW); GLUCOSE,URINE 1+ (NEGATIVE); KETONES,URINE NEGATIVE (NEGATIVE); LEUKOCYTE ESTERASE ,URINE NEGATIVE (NEGATIVE); NITRITE, URINE NEGATIVE (NEGATIVE); PROTEIN URINE 3+ (NEGATIVE); UROBILINOGEN,URINE 0.2 (0.2-1.0)
[2022-06-13 22:03] LABS: CLARITY/URINE SLIGHTLY HAZY (CLEAR)
[2022-06-13 22:09] LABS: BACTERIA,URINE FEW /HPF (None Seen); COARSE GRANULAR CASTS,URINE 0-10 /LPF (None Seen)
[2022-06-13 22:10] LABS: MUCUS,URINE 1+ /LPF (None Seen)
[2022-06-13] MEDS: glipiZIDE XL 5 MG TAB ( GLUCOTROL XL) PO SCH (23:34)
[2022-06-13] MEDS: CARVEDILOL 6.25 MG TABLET (COREG) PO SCH (23:34)
[2022-06-14] VITALS: BP_SYST 159
--- NOTE | 2022-06-14 06:04 | NUR ---
Consultation Paged Reason for Consultation: Tunnelled HD Catheter Was consult called: Y Person who was notified: Mark Consulting Physician: Dr. Garcia Ordering Physician: Dr. Medina
--- NOTE | 2022-06-14 07:50 | NUR ---
Alert and oriented x4 with VSS. Note eMAR and flowsheets this shift. PBS with SSI as MD ordered. Call light & personal items within pt reach and safety maintained. Bed alarm in place and properly functioning for safety. Will continue POC and report to oncoming nurse. Note consult for surgeon- this RN to speak with MD and he voiced he would be around and asked if patient already had access, patient without HD access at this time.
--- NOTE | 2022-06-14 08:00 | NUR ---
RECEIVED PATIENT FROM PM NURSE, AWAKE AND ORIENTED X 4 , ABLE TO VERBALIZE NEEDS , NO C/O PAIN OR DISCOMFORT AT THIS TIME, WILL ASSUME ALL CARE OF PATIENT
[2022-06-14] MEDS ORDERED: ROSUVASTATIN CALCIUM 5 MG/TAB (CRESTOR) PO SCH (09:00)
[2022-06-14] MEDS: FINERENONE PO SCH (09:00)
[2022-06-14] MEDS: Dapagliflozin Propanediol (Farxiga) 10 MG PO SCH (09:00)
[2022-06-14] MEDS: ATORVASTATIN 20 MG TABLET PO SCH (09:12)
[2022-06-14] MEDS: calcitrioL 0.25 MCG CAPSULE PO SCH (09:12)
[2022-06-14] MEDS: FUROSEMIDE 20 MG TABLET PO SCH (09:13)
[2022-06-14 10:00] VITALS: BP_SYST 157
[2022-06-14 12:08] LABS: BASOPHILS % (AUTO) 0.8 % (0.0-2.0); EOSINOPHILS # (AUTO) 0.4 K/uL (0.0-0.4); HEMATOCRIT 26.1 % (36-54); HEMOGLOBIN 8.4 g/dL (14.0-18.0); LYMPHOCYTES % (AUTO) 17.5 % (20.5-51.5); MEAN CORPUSCULAR HEMOGLOBIN 25 pg (27-31); MEAN CORPUSCULAR HGB CONC 32 % (32-36); MEAN CORPUSCULAR VOLUME 78 fL (79.0-98.0); MONOCYTES # (AUTO) 0.5 K/uL (0.0-1.0); MONOCYTES % (AUTO) 8.6 % (1.7-9.3); NEUTROPHILS # (AUTO) 3.9 K/uL (1.8-7.7); NEUTROPHILS % (AUTO) 67.1 % (40.0-70.0); PLATELET COUNT (AUTO) 154 K/uL (130-430); RED BLOOD CELL COUNT(AUTO) 3.35 MIL/uL (4.2-6.2); RED CELL DISTRIBUTION WIDTH 15.5 % (9.0-15.0); WHITE BLOOD COUNT (AUTO) 5.9 K/uL (4.8-10.8)
[2022-06-14] MEDS ORDERED: EPOETIN ALFA 20,000 UNITS/ML VIAL SUBCUT ONE (12:15)
[2022-06-14 12:17] LABS: TOTAL IRON BIND. CAPACITY 193 ug/dL (250-450)
[2022-06-14 12:18] LABS: CALCIUM 7.9 mg/dL (8.4-11.0); CREATININE 6.21 mg/dL (0.55-1.30)
[2022-06-14 12:25] LABS: ALBUMIN 1.8 g/dL (3.4-4.8); PHOSPHORUS 7.2 mg/dL (2.7-4.5); TOTAL BILIRUBIN 0.2 mg/dL (0.0-1.0)
[2022-06-14] MEDS ORDERED: SEVELAMER CARBONATE 800 MG TABLET PO SCH (13:00)
--- NOTE | 2022-06-14 13:09 | NUR ---
epogen not administered as patient isnot scheduled for dialysis today
[2022-06-14] MEDS ORDERED: SEVELAMER CARBONATE 800 MG TABLET PO ONE (13:15)
[2022-06-14] MEDS ORDERED: SODIUM BICARBONATE 650 MG TABLET PO ONE (13:15)
[2022-06-14] MEDS: glipiZIDE XL 5 MG TAB ( GLUCOTROL XL) PO SCH (17:14)
[2022-06-14] MEDS: SEVELAMER CARBONATE 800 MG TABLET PO SCH (17:40)
--- NOTE | 2022-06-14 18:52 | NUR ---
PATIENTS BLOOD SUGAR 82, NO INSULIN NEEDED AT THIS TIME, WENT OVER S/SX OF HYPOGLECEMIA, JUICE PROVIDED TO PATIENT
[2022-06-14 20:00] VITALS: BP_SYST 160
[2022-06-14] MEDS: SODIUM BICARBONATE 650 MG TABLET PO SCH (21:21)
[2022-06-14] MEDS: CARVEDILOL 6.25 MG TABLET (COREG) PO SCH (21:22)
[2022-06-15 00:10] VITALS: BP_SYST 155
[2022-06-15] MEDS: glipiZIDE XL 5 MG TAB ( GLUCOTROL XL) PO SCH ×2 (06:19→17:00)
--- NOTE | 2022-06-15 06:47 | NUR ---
PATIENT NOTED IN [employer] THIS MORNING WITH NO ACUTE EVENTS THIS SHIFT. NOTE eMAR AND FLOWSHEETS THIS SHIFT. BED IN LOW POSITION WITH SR'S UP X3 AND BED ALARM PROPERLY FUNCTIONING FOR SAFETY-SAFETY MAINTAINED THIS SHIFT. PATIENT DENIES PAIN OR ANY DISTRESS AT THIS TIME. CALL LIGHT IN EASY REACH-WILL CONTINUE POC AND ENDORSE TO ONCOMING NURSE. -NOTE PATIENT NPO FOR TUNNELED CATHETER PLACEMENT FOR HD. -PATIENT AWARE OF SHOWER BEFORE SURGERY AT 11:30- THIS RN TO WRAP IV TO AVOID GETTING IT WET. -PBS NOTED 89 THIS MORNING- 07:00 GLIPIZIDE PO HELD D/T PT BEING NPO. -SLIDING SCALE OF 2UNITS HELD AT BEDTIME FOR A BS OF 191. PATIENT VOICED HE WOULDN'T BE EATING THRU THE NIGHT AND WAS AWARE OF BEING NPO AFTER MIDNIGHT. -NPO SINCE 06/14/2022 23:59. -PT AWARE OF HOME MEDICATIONS THAT NEED TO BE BROUGHT IN-KERENDIA 1 TAB AND FARXIGA 10MG PO.
[2022-06-15 08:00] VITALS: BP_SYST 134
[2022-06-15] MEDS: SEVELAMER CARBONATE 800 MG TABLET PO SCH ×3 (08:00→18:47)
--- NOTE | 2022-06-15 08:00 | NUR ---
Initial Notes Patient is AOx4. Ambulatory with steady gait. No ss of distress noted. NO SOB noted. Patient denies pain. Vital signs obtained, as documented. Breathing is even and nonlabored, on room air. IV patent. Patient is NPO, for tunneled catheter placement for HD today. Bed is locked and at lowest position. Call light within reach.
[2022-06-15] MEDS: CARVEDILOL 6.25 MG TABLET (COREG) PO SCH ×2 (09:00→22:00)
[2022-06-15] MEDS: SODIUM BICARBONATE 650 MG TABLET PO SCH ×2 (09:00→22:00)
[2022-06-15] MEDS: FINERENONE PO SCH (09:00)
[2022-06-15] MEDS: calcitrioL 0.25 MCG CAPSULE PO SCH (09:00)
[2022-06-15] MEDS: ATORVASTATIN 20 MG TABLET PO SCH (09:00)
[2022-06-15] MEDS: FUROSEMIDE 40 MG TABLET PO SCH (09:00)
[2022-06-15] MEDS: Dapagliflozin Propanediol (Farxiga) 10 MG PO SCH (09:00)
--- NOTE | 2022-06-15 11:15 | NUR ---
NOTES PATIENT OFF UNIT WENT TO OR FOR PROCEDURE.
[2022-06-15 11:43] VITALS: BP_SYST 136
[2022-06-15] MEDS ORDERED: HEPARIN SODIUM, PORCINE 10,000 UNITS/ 10 ML VIAL MC ONE (11:50)
[2022-06-15] MEDS ORDERED: fentaNYL CITRATE/PF 100 MCG/2 ML AMP IVP ONE (11:50)
[2022-06-15] MEDS ORDERED: NS 100 ML BAG IV ONE (11:50)
[2022-06-15] MEDS ORDERED: NS IRRIG SOLN 1000 ML IR ONE (11:50)
[2022-06-15] MEDS ORDERED: PROPOFOL 200MG/ 20ML VIAL (DIPRIVAN) IV ONE (11:50)
[2022-06-15] MEDS ORDERED: BUPIVACAINE /EPINEPHRINE/PF 0.5% 30 ML VIAL INJ ONE (11:50)
[2022-06-15] MEDS ORDERED: NS 1000 ML IV.SOLN IV ONE (11:50)
[2022-06-15] MEDS ORDERED: CEFAZOLIN 2 GM IVPB PREMIX 50 ML IV ONE (11:50)
[2022-06-15] MEDS ORDERED: ONDANSETRON HCL 4 MG/2 ML VIAL IVP ONE (11:50)
[2022-06-15] MEDS ORDERED: DESFLURANE 15 MIN GAS INH ONE (11:50)
[2022-06-15] MEDS ORDERED: ONDANSETRON HCL 4 MG/2 ML VIAL IVP PRN (13:00)
[2022-06-15] MEDS ORDERED: HYDROmorphone 1 MG/ML INJ. CARTRIDGE IVP PRN (13:00)
[2022-06-15] MEDS ORDERED: ACETAMINOPHEN 325 MG TABLET PO PRN (13:15)
--- NOTE | 2022-06-15 13:45 | NUR ---
Notes Patient return to unit. Patient is awake. No ss of distress noted. Denies SOB, denies pain. Breathing is even and nonlabored, on room air. HD at bedside to start HD. Vital signs obtained, as documented. Patient has R Upper chest Perma Cath. Iv patent. Safety precautions in place and call light within reach.
[2022-06-15] MEDS ORDERED: HEPARIN SODIUM,PORCINE 5,000 UNITS/ML VIAL SUBCUT SCH (14:30)
--- NOTE | 2022-06-15 16:00 | NUR ---
Notes Patient is HD. No distress noted. Patient denies pain. Patient is stable. Safety precautions in place and call light within reach.
--- NOTE | 2022-06-15 16:03 | NUR ---
CM : faxed HP and fs to [facility] fax# [phone], tel [phone], cell # [phone]. The out patient HD set up pending Hep panel and TB result. Per [facility]: chair time tentatively for Jun 20 at 3 pm, pt to come in 30 mins early on first visit. Dr. Td fregoso md. [facility] HD address [address] [place], [place] [id number].
--- NOTE | 2022-06-15 17:00 | NUR ---
Notes HD ended. 1.4 L output. Patient stable and resting. Safety precautions in place and call light within reach.
[2022-06-15 18:14] VITALS: BP_SYST 160
--- NOTE | 2022-06-15 19:30 | NUR ---
Closing Notes Patient is eating dinner. Ambulatory with steady gait. Denies pain, no ss of distress noted. Breathing is even and nonlabored, on room air. IV patent. Patient is stable. All needs met. brought home medications. Bed is locked and at lowest position. Call light within reach. Endorsed care to SAMAN Ureña.
[2022-06-15 20:00] VITALS: BP_SYST 143
--- NOTE | 2022-06-15 22:45 | NUR ---
THIS RN MAKING ROUNDS ON PATIENT AT THIS TIME AND HE VOICED HIS CONCERNS REGARDING FINDING A DIALYSIS CHAIR OUTPATIENT. PATIENT VOICED BECAUSE OF WORK AND HIS FAMILY SCHEDULE HE NEEDS TO BE THE FIRST CHAIR IN THE MORNINGS OR THE LAST CHAIR IN THE EVENINGS ON SATURDAY, SATURDAY AND SATURDAYS SO HE CAN CONTINUE TO MANAGE HIS SCHEDULE ACCORDINGLY. PATIENT ALSO VOICES HE WOULD PREFER A CHAIR CLOSER TO HOME/WORK- NOTE FACILITIES BELOW HE WANTS TO MENTION TO CASE MANGERS TO CHECK IN REGARDS TO AN OPEN CHAIR FOR HIS PREFERENCE. - WINIFRED AT [facility] IN [place]. WILL REPORT TO CHARGE NURSE AND REPORT TO ONCOMING NURSE TO ENDORSE TO HEEL PADDER.
[2022-06-16 00:41] VITALS: BP_SYST 139
[2022-06-16] MEDS: glipiZIDE XL 5 MG TAB ( GLUCOTROL XL) PO SCH ×2 (07:23→17:09)
--- NOTE | 2022-06-16 08:00 | NUR ---
OPENING NOTES: Patient in bed, awake and alert. Breathing even and unlabored. No pain reported at this time. Patient updated on his plan of care and verbalized understanding. All needs met, safety checks made and call light within reach.
[2022-06-16 08:03] LABS: BASOPHILS # (AUTO) 0.1 K/uL (0.0-0.2); BASOPHILS % (AUTO) 1.1 % (0.0-2.0); EOSINOPHILS # (AUTO) 0.4 K/uL (0.0-0.4); HEMATOCRIT 23.9 % (36-54); HEMOGLOBIN 8.1 g/dL (14.0-18.0); LYMPHOCYTES # (AUTO) 1.4 K/uL (1.0-5.5); LYMPHOCYTES % (AUTO) 23.9 % (20.5-51.5); MEAN CORPUSCULAR HEMOGLOBIN 26 pg (27-31); MEAN CORPUSCULAR HGB CONC 34 % (32-36); MEAN CORPUSCULAR VOLUME 77 fL (79.0-98.0); MONOCYTES # (AUTO) 0.7 K/uL (0.0-1.0); MONOCYTES % (AUTO) 11.9 % (1.7-9.3); NEUTROPHILS # (AUTO) 3.3 K/uL (1.8-7.7); NEUTROPHILS % (AUTO) 57.1 % (40.0-70.0); PLATELET COUNT (AUTO) 151 K/uL (130-430); RED CELL DISTRIBUTION WIDTH 14.9 % (9.0-15.0); WHITE BLOOD COUNT (AUTO) 5.9 K/uL (4.8-10.8)
[2022-06-16 08:13] VITALS: BP_SYST 143
[2022-06-16 08:48] LABS: ALBUMIN 1.7 g/dL (3.4-4.8); CALCIUM 7.6 mg/dL (8.4-11.0); CREATININE 4.76 mg/dL (0.55-1.30); TOTAL BILIRUBIN 0.2 mg/dL (0.0-1.0)
[2022-06-16] MEDS: calcitrioL 0.25 MCG CAPSULE PO SCH (09:28)
[2022-06-16] MEDS: FUROSEMIDE 20 MG TABLET PO SCH (09:29)
[2022-06-16] MEDS: ATORVASTATIN 20 MG TABLET PO SCH (09:29)
[2022-06-16] MEDS: SODIUM BICARBONATE 650 MG TABLET PO SCH ×2 (09:30→20:55)
[2022-06-16] MEDS: CARVEDILOL 6.25 MG TABLET (COREG) PO SCH ×2 (09:30→20:55)
[2022-06-16] MEDS: SEVELAMER CARBONATE 800 MG TABLET PO SCH ×3 (09:31→17:09)
[2022-06-16 11:23] VITALS: BP_SYST 114
[2022-06-16] MEDS ORDERED: IRON SUCROSE COMPLEX 200 MG in NS 100 ML IV ONE (11:45)
[2022-06-16] MEDS ORDERED: EPOETIN ALFA-EPBX 20,000 UNITS/ML VIAL SUBCUT ONE (12:15)
[2022-06-16 15:23] VITALS: BP_SYST 115
--- NOTE | 2022-06-16 19:08 | NUR ---
CLOSING NOTES: Patient is resting in bed. No s/s of distress. Patient denies pain. Breathing is even and unlabored. Patient is up to date on plan of care including dialysis tomorrow.All needs met, safety checks made and call within reach.
[2022-06-16 20:00] VITALS: BP_SYST 153
[2022-06-17 01:05] VITALS: BP_SYST 129
--- NOTE | 2022-06-17 06:16 | NUR ---
PT NOTED IN [facility] THIS SHIFT. NOTE eMAR AND FLOWSHEETS THIS SHIFT. BED IN LOW POSITION WITH SR'S UP X3 AND BED ALARM PROPERLY FUNCTIONING FOR SAFETY. NO ACUTE EVENTS NOTED THIS SHIFT. VVS WITH 0 S/S OF DISTRESS NOTED. WILL CONTINUE POC AND REPORT TO ENDORSE TO ONCOMING NURSE. -PT AWARE OF HD SESSION TODAY. -MRSA SWAB SENT TO LAB BY THIS RN.
[2022-06-17] MEDS: glipiZIDE XL 5 MG TAB ( GLUCOTROL XL) PO SCH (07:22)
--- NOTE | 2022-06-17 07:31 | NUR ---
opening note Pt. is AAOx4, no signs of acute distress, fall precautions in place, call light within reach.
[2022-06-17 08:48] LABS: BASOPHILS # (AUTO) 0.1 K/uL (0.0-0.2); BASOPHILS % (AUTO) 0.9 % (0.0-2.0); EOSINOPHILS # (AUTO) 0.5 K/uL (0.0-0.4); EOSINOPHILS % (AUTO) 7.8 % (0.0-4.0); HEMATOCRIT 23.3 % (36-54); HEMOGLOBIN 7.6 g/dL (14.0-18.0); LYMPHOCYTES # (AUTO) 1.6 K/uL (1.0-5.5); LYMPHOCYTES % (AUTO) 22.9 % (20.5-51.5); MEAN CORPUSCULAR HEMOGLOBIN 26 pg (27-31); MEAN CORPUSCULAR HGB CONC 33 % (32-36); MEAN CORPUSCULAR VOLUME 78 fL (79.0-98.0); MONOCYTES # (AUTO) 0.8 K/uL (0.0-1.0); MONOCYTES % (AUTO) 12.1 % (1.7-9.3); NEUTROPHILS % (AUTO) 56.3 % (40.0-70.0); PLATELET COUNT (AUTO) 139 K/uL (130-430); RED CELL DISTRIBUTION WIDTH 15.1 % (9.0-15.0)
[2022-06-17 09:28] LABS: CALCIUM 7.1 mg/dL (8.4-11.0); CREATININE 5.39 mg/dL (0.55-1.30); FREE T4 (FREE THYROXINE) 0.9 ng/dL (0.6-1.6); THYROID STIMULATING HORMONE 3.67 uIu/mL (0.34-4.82)
[2022-06-17] MEDS: SODIUM BICARBONATE 650 MG TABLET PO SCH ×2 (10:15→20:37)
[2022-06-17] MEDS: ATORVASTATIN 20 MG TABLET PO SCH (10:15)
[2022-06-17] MEDS: FUROSEMIDE 20 MG TABLET PO SCH (10:15)
[2022-06-17] MEDS: calcitrioL 0.25 MCG CAPSULE PO SCH (10:15)
[2022-06-17] MEDS: CARVEDILOL 6.25 MG TABLET (COREG) PO SCH ×2 (10:16→20:39)
[2022-06-17] MEDS: SEVELAMER CARBONATE 800 MG TABLET PO SCH ×3 (10:18→18:58)
--- NOTE | 2022-06-17 16:19 | NUR ---
Midshift Note: Pt. is aaox4, independent and ambulating ad lu in the room, no signs of acute distress no reports of pain. Pt. has showered and linens have been changed. Currently awaiting dialysis for today, dialysis nurse is waiting for blood products to be ready to begin dialysis and give 2 units with dialysis. Permacath site is on right chest, dressing is clean dry and intact, chg bath completed.
--- NOTE | 2022-06-17 17:23 | NUR ---
pt. has first dose of iv antibiotics due but pt. has not been able to provide a urine sample for culture, holding iv abx administration until pt. is able to provide urine sample, will call pharmacy to adjust future iv abx schedule once it is being administered.
--- NOTE | 2022-06-17 18:44 | NUR ---
Blood Transfusion one unit out of 2 given. Packed Red Cells given to hospital education coordinator Nayla to be given during dialysis. 2 RN verification of blood performed with Nayla and blood transfusion consent is in the chart with a copy given to blood bank.
[2022-06-17 18:50] VITALS: BP_SYST 127
--- NOTE | 2022-06-17 20:00 | NUR ---
Closing Note SBAR report given to SAMAN Bhakta, endorsed to Livia to verify 1 unit of PRBC to be given by head stock transfer clerkSAMAN Winslow which is going to be transfused shortly, also endorsed to collect urine sample and begin iv abx once urine sample has been obtained.
--- NOTE | 2022-06-17 20:00 | NUR ---
1st PRBC has been transfused by dialysis nurse, paper charting has been completed and sent to lab.
[2022-06-18] MEDS: cefTRIAXone 1 GM in D5W 50 ML IV SCH ×2 (00:28→13:05)
[2022-06-18] MEDS: glipiZIDE XL 5 MG TAB ( GLUCOTROL XL) PO SCH (06:06)
[2022-06-18 07:10] LABS: BASOPHILS # (AUTO) 0.1 K/uL (0.0-0.2); BASOPHILS % (AUTO) 0.8 % (0.0-2.0); EOSINOPHILS # (AUTO) 0.5 K/uL (0.0-0.4); EOSINOPHILS % (AUTO) 7.6 % (0.0-4.0); HEMATOCRIT 31.1 % (36-54); HEMOGLOBIN 10.5 g/dL (14.0-18.0); LYMPHOCYTES # (AUTO) 1.5 K/uL (1.0-5.5); LYMPHOCYTES % (AUTO) 20.5 % (20.5-51.5); MEAN CORPUSCULAR HEMOGLOBIN 27 pg (27-31); MEAN CORPUSCULAR HGB CONC 34 % (32-36); MEAN CORPUSCULAR VOLUME 79 fL (79.0-98.0); MONOCYTES # (AUTO) 0.9 K/uL (0.0-1.0); MONOCYTES % (AUTO) 12.3 % (1.7-9.3); NEUTROPHILS # (AUTO) 4.2 K/uL (1.8-7.7); NEUTROPHILS % (AUTO) 58.8 % (40.0-70.0); PLATELET COUNT (AUTO) 129 K/uL (130-430); RED BLOOD CELL COUNT(AUTO) 3.93 MIL/uL (4.2-6.2); RED CELL DISTRIBUTION WIDTH 15.5 % (9.0-15.0); WHITE BLOOD COUNT (AUTO) 7.1 K/uL (4.8-10.8)
--- NOTE | 2022-06-18 07:20 | NUR ---
OPENING NOTE RECEIVED SBAR FROM NIGHT RN. PATIENT IN BED RESPIRATIONS EVEN NON LABORED, BED IN LOW AND LOCKED POSITION CALL LIGHT WITHIN REACH.
[2022-06-18 07:37] LABS: CALCIUM 7.3 mg/dL (8.4-11.0); CREATININE 3.81 mg/dL (0.55-1.30)
[2022-06-18 08:00] VITALS: BP_SYST 159
[2022-06-18] MEDS: SEVELAMER CARBONATE 800 MG TABLET PO SCH ×3 (08:51→17:33)
[2022-06-18] MEDS: NEPHROVITE, (FOLIC ACID/VITAMIN B COMP W-C 1 TAB) PO SCH (08:52)
[2022-06-18] MEDS: FUROSEMIDE 40 MG TABLET PO SCH (08:52)
[2022-06-18] MEDS: calcitrioL 0.25 MCG CAPSULE PO SCH (08:52)
[2022-06-18] MEDS: CARVEDILOL 6.25 MG TABLET (COREG) PO SCH ×2 (08:53→20:49)
[2022-06-18] MEDS: SODIUM BICARBONATE 650 MG TABLET PO SCH ×2 (08:53→20:48)
[2022-06-18] MEDS: ASPIRIN 81 MG TABLET(ECOTRIN) PO SCH (08:54)
[2022-06-18] MEDS: ATORVASTATIN 20 MG TABLET PO SCH (08:54)
--- NOTE | 2022-06-18 08:58 | NUR ---
CALLED DR BOLTON OFFICE REGARDING LOW POTASSIUM 3.3 SPOKE WITH DE
--- NOTE | 2022-06-18 09:02 | NUR ---
MD DR WHITE REGARDING 3.3 POTASSIUM. NO NEW ORDERS
--- NOTE | 2022-06-18 10:44 | NUR ---
Discharge Planning: FLACO faxed pt updated clinicals to Moi at [facility] P#[phone] F#[phone]. Pending Hep Panel, chair time MWF 3:00pm. REJIP to follow up Addendum: 06/18/22 at 1656 by Crystal Scott DP FLACO spoke to patient he would like a dialysis center closer to home TTHS maintenance assistant, FLACO made pt aware [facility] is [facility] contracted dialysis company. FLACO contacted Moi at [facility]#[phone], made him aware of request. Moi will check if any chair times are available and if Dr Appiah goes to the [facility]. Patient and is okay with seeing a different solutions engineer. FLACO made CM aware.
[2022-06-18 11:22] VITALS: BP_SYST 125
--- NOTE | 2022-06-18 13:09 | NUR ---
NURSE NOTE PATIENT IN BED, WORKING ON COMPUTER. DENIES ANY PAIN OR DISCOMFORT. BED IN LOW AND LOCKED POSITION CALL LIGHT WITHIN REACH.
--- NOTE | 2022-06-18 15:05 | NUR ---
Nutrition F/U: Admitting Diagnosis PHILLIP Reviewed Pertinent Medical/Surgical Hx Medical Record; Patient Medical History Comment: Per EMR review, PMH of T2DM, CKD, nephrotic syndrome, HTN, anemia. Pt admitted for general weakness. Dx of PHILLIP on CKD secondary to diabetic nephropathy. Per MD note, CKD progressed to ESRD now requiring HD. s/p PermaCath placement and emergency HD 06/15 w/ 1.4L output. Subjective Information: RD rounded to patient room and witnessed patient in bed with laptop, working. Per pt, his appetite is great, endorsed by documented PO intake 90% x 10 meals. Patient denies N/V/D/C and states he has no questions/concerns. RD informed patient that if he has any nutrition/diet related questions that RDs will be available to him. Per EMR, LBM 06/18 x 1. Current Diet Order/Nutrition Support: Consistent CHO x 3 days Patient/Significant Other Able To Verbalize Education Provided Indicated HD diet; not appropriate this visit Pertinent Medications: Lasix, Renvela, Linagliptin, Lipitor, Coreg, Calcitriol, Glucotrol, nephrovite, sodium bicarbonate Pertinent Labs: Drawn 06/18- BG 148 H, POC BG 115 H , BUN 36 H, CRE 3.81 H (improved); K 3.3 L, Phos 7.2 H, Ca 7.3 L, Chol 237 H, LDL 156 H, TG WNL Height (Feet) 5 feet Height (Inches) 10.00 inches Weight (Pounds) 191 pounds Weight (Calculated Kilograms) 86.990278 kilograms Patient Weight 86.636 kg Body Mass Index 27.40 kg/m2 %IBW 115 [place]/Adjusted Body Weight 166#/75.5kg IBW. Recent Weight Change Unable to verify Weight Status Overweight Last BM Jun 18, 2022 Food Allergies Unable to verify Usual Diet At Home Diabetic diet per RN screen Skin Integrity Comment: Omar Score 19: 06/18 - no edema/PIs per EMR review. Current % PO Good (75-100%) Estimated Energy Expenditure (kcals/day) 4383-8187 (25-30kcal/kg IBW d/t ESRD new HD) Estimated Protein Required (g/day) 87-104 (1-1.2g/kg CBW d/t ESRD new HD) Estimated Fluid Required (l/day) Defer to MD d/t ESRD Problem/Etiology/Signs/Symptoms * Altered nutrition related labs R/T renal dysfunction AEB elevated BG, POC BG, BUN, CRE (on-going) Expected Outcomes/Goals Monitor appetite and PO intakes w/ goal of meeting >75% of estimated nutritional needs, labs trending WNL, normal GI function, and skin integrity/wt maintenance; weight fluctuations likely d/t HD Dietitian Recommendations * Continue CCHO, Renal diet * HD diet education next RD visit Follow Up High Risk: F/U in 2-3days
--- NOTE | 2022-06-18 15:10 | NUR ---
Dietitian Recommendations * Continue CCHO, Renal diet * HD diet education next RD visit Please refer to nutrition f/u for details, thanks! CC, MPH, RDN
[2022-06-18] MEDS ORDERED: EPOETIN ALFA-EPBX 4,000 UNITS/ML VIAL SUBCUT SCH (17:00)
[2022-06-18] MEDS ORDERED: POTASSIUM CHLORIDE 20 MEQ/PKT PACKET PO ONE (17:15)
[2022-06-18 17:16] VITALS: BP_SYST 142
--- NOTE | 2022-06-18 19:25 | NUR ---
closing note Pr Provided sbar to night RN. Patient in bed, respirations even, non labored. Bed in low and locked position call light within reach, . Endorsed to night RN. Patient to have dialysis tomorrow
[2022-06-18 20:00] VITALS: BP_SYST 181
[2022-06-18 22:30] VITALS: BP_SYST 155
[2022-06-19 02:06] LABS: HEPATITIS A AB, IgM Negative (Negative); HEPATITIS B CORE AB, IgM Negative (Negative); HEPATITIS B SURFACE AG Negative (Negative)
[2022-06-19] MEDS: glipiZIDE XL 5 MG TAB ( GLUCOTROL XL) PO SCH (06:42)
[2022-06-19 07:00] VITALS: BP_SYST 158
[2022-06-19 07:05] LABS: BASOPHILS # (AUTO) 0.1 K/uL (0.0-0.2); BASOPHILS % (AUTO) 0.9 % (0.0-2.0); EOSINOPHILS # (AUTO) 0.6 K/uL (0.0-0.4); EOSINOPHILS % (AUTO) 7.8 % (0.0-4.0); HEMATOCRIT 30.5 % (36-54); HEMOGLOBIN 10.3 g/dL (14.0-18.0); LYMPHOCYTES # (AUTO) 1.7 K/uL (1.0-5.5); LYMPHOCYTES % (AUTO) 22.4 % (20.5-51.5); MEAN CORPUSCULAR HEMOGLOBIN 27 pg (27-31); MEAN CORPUSCULAR HGB CONC 34 % (32-36); MEAN CORPUSCULAR VOLUME 79 fL (79.0-98.0); MONOCYTES # (AUTO) 0.8 K/uL (0.0-1.0); MONOCYTES % (AUTO) 11.4 % (1.7-9.3); NEUTROPHILS # (AUTO) 4.3 K/uL (1.8-7.7); NEUTROPHILS % (AUTO) 57.5 % (40.0-70.0); PLATELET COUNT (AUTO) 138 K/uL (130-430); RED BLOOD CELL COUNT(AUTO) 3.85 MIL/uL (4.2-6.2); RED CELL DISTRIBUTION WIDTH 15.4 % (9.0-15.0); WHITE BLOOD COUNT (AUTO) 7.4 K/uL (4.8-10.8)
[2022-06-19 07:29] LABS: ALBUMIN 1.6 g/dL (3.4-4.8); CALCIUM 7.4 mg/dL (8.4-11.0); CREATININE 4.88 mg/dL (0.55-1.30); TOTAL BILIRUBIN 0.2 mg/dL (0.0-1.0)
[2022-06-19] MEDS: SEVELAMER CARBONATE 800 MG TABLET PO SCH ×3 (08:28→18:00)
[2022-06-19] MEDS: SODIUM BICARBONATE 650 MG TABLET PO SCH ×2 (08:29→20:01)
[2022-06-19] MEDS: NEPHROVITE, (FOLIC ACID/VITAMIN B COMP W-C 1 TAB) PO SCH (08:29)
[2022-06-19] MEDS: ATORVASTATIN 20 MG TABLET PO SCH (08:29)
[2022-06-19] MEDS: FUROSEMIDE 20 MG TABLET PO SCH (08:30)
[2022-06-19] MEDS: calcitrioL 0.25 MCG CAPSULE PO SCH (08:31)
[2022-06-19] MEDS: CARVEDILOL 6.25 MG TABLET (COREG) PO SCH ×2 (08:31→20:01)
[2022-06-19] MEDS: ASPIRIN 81 MG TABLET(ECOTRIN) PO SCH (08:31)
--- NOTE | 2022-06-19 09:45 | NUR ---
Discharge Planning: [phone], pt request TTHS hatchery worker chair time. Renal doctor requesting different facility and company, [facility] is contracted with [facility]. DCP made CM aware. Addendum: 06/19/22 at 1301 by Crystal Scott DP REJIP spoke to Moi at [facility] may be able to accommodate patient. DCP will follow up. DCP made patient aware. Addendum: 06/19/22 at 1630 by Crystal Scott DP FLACO spoke to Moi at [facility] has a MWF 4:00am patient is okay with, Moi will forward clinicals for medical clearance and confirm chair time and days. REJIP to follow up.
[2022-06-19 10:32] VITALS: BP_SYST 158
[2022-06-19] MEDS ORDERED: HEPARIN SODIUM, PORCINE 10,000 UNITS/ 10 ML VIAL MC ONE (10:45)
[2022-06-19 11:21] VITALS: BP_SYST 146
[2022-06-19 12:32] LABS: PTH, INTACT 158 pg/mL (15-65)
[2022-06-19] MEDS: cefTRIAXone 1 GM in D5W 50 ML IV SCH (14:30)
[2022-06-19] MEDS ORDERED: LORATADINE 10 MG TABLET PO PRN (14:45)
--- NOTE | 2022-06-19 16:07 | NUR ---
Nutrition Note: RD rounded to patient room and s/w patient at bedside. Patient agreeable to new HD education. RD provided nutrition education and patient given handouts. RD answered all questions. Please refer to interdisciplinary teaching record for details, thanks! Carmen Delgadillo MPH, RDN
[2022-06-19 17:25] VITALS: BP_SYST 147
--- NOTE | 2022-06-19 19:30 | NUR ---
OPENING NOTE Pt is awake a/ox4, ambulatory. Family at bedside. No s/s of respiratory distress. Breathing even and unlabored on RA. IV site intact and patent saline lock. Right upper chest IJ permacath dressing CDI. Fall and safety precautions in bed with bed in lowest position and call light within reach
[2022-06-19 20:00] VITALS: BP_SYST 150
[2022-06-20] VITALS: BP_SYST 142
--- NOTE | 2022-06-20 00:15 | NUR ---
ROUNDS Pt lying in bed, eyes closed. No s/s of acute distress. VSS. Fall and safety checks in place
--- NOTE | 2022-06-20 04:54 | NUR ---
CONSULTATION PAGED/CALLED Reason for Consultation: (+)TB GOLD Person Who was Notified: SILKE Consulting Physician: DR.BEGUM HEREDIA FOR Technical Writing Lead/Mgr Specialty: ID Ordering Physician:
[2022-06-20] MEDS: glipiZIDE XL 5 MG TAB ( GLUCOTROL XL) PO SCH (06:09)
--- NOTE | 2022-06-20 07:04 | NUR ---
CLOSING NOTE Pt lying in bed. No s/s of respiratory distress. Breathing even and unlabored on RA. IV site intact and patent saline lock. Right upper chest IJ permacath dressing CDI. Pt scheduled to have hemodialysis today. All needs met throughout shift. Fall and safety precautions in bed with bed in lowest position and call light within reach
[2022-06-20 07:35] LABS: BASOPHILS # (AUTO) 0.1 K/uL (0.0-0.2); BASOPHILS % (AUTO) 0.9 % (0.0-2.0); EOSINOPHILS # (AUTO) 0.6 K/uL (0.0-0.4); EOSINOPHILS % (AUTO) 7.8 % (0.0-4.0); HEMATOCRIT 31.1 % (36-54); HEMOGLOBIN 10.5 g/dL (14.0-18.0); LYMPHOCYTES # (AUTO) 1.6 K/uL (1.0-5.5); LYMPHOCYTES % (AUTO) 19.7 % (20.5-51.5); MEAN CORPUSCULAR HEMOGLOBIN 27 pg (27-31); MEAN CORPUSCULAR HGB CONC 34 % (32-36); MEAN CORPUSCULAR VOLUME 80 fL (79.0-98.0); NEUTROPHILS # (AUTO) 4.8 K/uL (1.8-7.7); NEUTROPHILS % (AUTO) 59.6 % (40.0-70.0); PLATELET COUNT (AUTO) 146 K/uL (130-430); RED BLOOD CELL COUNT(AUTO) 3.89 MIL/uL (4.2-6.2)
--- NOTE | 2022-06-20 08:00 | NUR ---
Initial notes Received patient awake in bed using lab top computer. Alert oriented Ox 4, no c/o pain or no signs of respiratory distress. Respiration even/unlabored, oxygen saturation at 98% room air. IV saline lock left wrist patent, no signs of infiltration. all safety precaution secured w/ call light with in reached and bed in low position, continue to monitor.
[2022-06-20 08:19] LABS: CALCIUM 8.1 mg/dL (8.4-11.0); CREATININE 4.51 mg/dL (0.55-1.30)
[2022-06-20 08:24] VITALS: BP_SYST 159
[2022-06-20] MEDS: ATORVASTATIN 20 MG TABLET PO SCH (08:26)
[2022-06-20] MEDS: SODIUM BICARBONATE 650 MG TABLET PO SCH (08:26)
[2022-06-20] MEDS: SEVELAMER CARBONATE 800 MG TABLET PO SCH ×2 (08:27→13:41)
[2022-06-20] MEDS: NEPHROVITE, (FOLIC ACID/VITAMIN B COMP W-C 1 TAB) PO SCH (08:27)
[2022-06-20] MEDS: ASPIRIN 81 MG TABLET(ECOTRIN) PO SCH (08:27)
[2022-06-20] MEDS: FUROSEMIDE 40 MG TABLET PO SCH (08:28)
[2022-06-20] MEDS: calcitrioL 0.25 MCG CAPSULE PO SCH (08:28)
[2022-06-20] MEDS: CARVEDILOL 6.25 MG TABLET (COREG) PO SCH (08:28)
[2022-06-20] MEDS: cefTRIAXone 1 GM in D5W 50 ML IV SCH (13:42)
[2022-06-20] MEDS ORDERED: SEVE800T8 PO (13:45)
[2022-06-20] MEDS ORDERED: GLIP5TAB26 PO (13:45)
[2022-06-20] MEDS ORDERED: ASPI-1457 PO (13:45)
[2022-06-20] MEDS ORDERED: NEPH PO (13:45)
--- NOTE | 2022-06-20 14:27 | NUR ---
Discharge Planning; REJIP followed up with [facility] [address] [address] P#[phone] MWF 4:00am. Patient to arrive 30 minutes early on first day Saturday06/22/2022. DCP made patient and CM aware.
[2022-06-20 15:58] VITALS: BP_SYST 150
--- NOTE | 2022-06-20 17:12 | NUR ---
Discharge note Patient discharge home per MD order, vital signs w/in norm, no c/o pain/SOB. Discharge instruction given to patient to f/u appointment with primary doctor, take medication as prescribed, patient verbalizes understanding. IV saline lock discontinued w/ catheter intact. Discharge with Raffaele catheter to right chest for outpatient dialysis. Educational document given to patient to care for Raffaele catheter, Diabetic mellitus patient verbalizes understanding. Patient home medication cigar packer and picker from pharmacy and given to patient. Patent ambulate off unit with
== END 2022-06-20 17:10 | disposition home or self-care (01) | DRG 673 ==
LOC: SMU 20:03
PROVIDERS: ADMIT Internal Medicine; ATTEND Internal Medicine
PROC: 5A1D70Z Performance of Urinary Filtration, Intermittent, Less than 6 Hours Per Day (ICD-10-PCS; 2022-06-14)
PROC: 02HV33Z Insertion of Infusion Device into Superior Vena Cava, Percutaneous Approach (ICD-10-PCS; 2022-06-15)
PROC: B518ZZA Fluoroscopy of Superior Vena Cava, Guidance (ICD-10-PCS; 2022-06-15)
PROC: B548ZZA Ultrasonography of Superior Vena Cava, Guidance (ICD-10-PCS; 2022-06-15)
PROC: 0JH63XZ Insertion of Tunneled Vascular Access Device into Chest Subcutaneous Tissue and Fascia, Percutaneous Approach (ICD-10-PCS; principal; 2022-06-15 11:50)
PROC: 30233N1 Transfusion of Nonautologous Red Blood Cells into Peripheral Vein, Percutaneous Approach (ICD-10-PCS; 2022-06-17)
PROC: 5A1D70Z Performance of Urinary Filtration, Intermittent, Less than 6 Hours Per Day (ICD-10-PCS; 2022-06-17)
PROC: 5A1D70Z Performance of Urinary Filtration, Intermittent, Less than 6 Hours Per Day (ICD-10-PCS; 2022-06-19)
DX: N17.9 Acute kidney failure, unspecified (principal); E43 Unspecified severe protein-calorie malnutrition; E87.20 Acidosis, unspecified; I12.0 Hypertensive chronic kidney disease with stage 5 chronic kidney disease or end stage renal disease; D63.1 Anemia in chronic kidney disease; N18.6 End stage renal disease; E83.39 Other disorders of phosphorus metabolism; E78.5 Hyperlipidemia, unspecified; E11.22 Type 2 diabetes mellitus with diabetic chronic kidney disease; Z20.822 Contact with and (suspected) exposure to COVID-19; Z79.1 Long term (current) use of non-steroidal anti-inflammatories (NSAID); Z79.899 Other long term (current) drug therapy; Z87.891 Personal history of nicotine dependence; Z83.3 Family history of diabetes mellitus; Z99.2 Dependence on renal dialysis; Z87.441 Personal history of nephrotic syndrome; Z79.82 Long term (current) use of aspirin; Z68.27 Body mass index [BMI] 27.0-27.9, adult
CPT/HCPCS: 36415; 71045; 76000; 80048; 80053; 80061; 80074; 81000; 82607; 82962; 83540; 83550; 83970; 84100; 84311; 84439; 84443; 85025; 85610-TC; 85730-TC; 86480; 86886; 86900; 86901; 86920; 87081; 87086; 90935; 90937; C1750; J0690; J0696; J1644; J1756; J1815; J2405; J2704; J3010; J3490; J7030; J7060; P9021; Q5106

== ENCOUNTER 2022-10-13 09:45 | Outpatient (CLI) | payer OTHER ==
[~2022-10-13 09:45] MED LIST changes: +ASPI-1457 PO; +CALC0.258 PO; -CEPH250C PO; +COR6.25 PO; +FURO-149 PO; +FURO-150 PO; +GLIP5TAB26 PO; -HYDR-3927 PO; -IBUP-1969 PO; +NEPH PO; -POLYTRIM EACH EYE; +ROSU40TA PO; +SEVE800T8 PO; +SITA100T11 PO
[2022-10-13 11:42] LABS: BASOPHILS # (AUTO) 0.1 K/uL (0.0-0.2); BASOPHILS % (AUTO) 0.9 % (0.0-2.0); EOSINOPHILS # (AUTO) 0.6 K/uL (0.0-0.4); EOSINOPHILS % (AUTO) 7.5 % (0.0-4.0); HEMATOCRIT 39.3 % (36-54); LYMPHOCYTES # (AUTO) 1.3 K/uL (1.0-5.5); LYMPHOCYTES % (AUTO) 17.7 % (20.5-51.5); MEAN CORPUSCULAR HEMOGLOBIN 27 pg (27-31); MEAN CORPUSCULAR HGB CONC 33 % (32-36); MEAN CORPUSCULAR VOLUME 83 fL (79.0-98.0); MONOCYTES # (AUTO) 0.7 K/uL (0.0-1.0); MONOCYTES % (AUTO) 9.4 % (1.7-9.3); NEUTROPHILS # (AUTO) 4.9 K/uL (1.8-7.7); NEUTROPHILS % (AUTO) 64.5 % (40.0-70.0); PLATELET COUNT (AUTO) 129 K/uL (130-430); RED BLOOD CELL COUNT(AUTO) 4.77 MIL/uL (4.2-6.2); RED CELL DISTRIBUTION WIDTH 17.9 % (9.0-15.0); WHITE BLOOD COUNT (AUTO) 7.5 K/uL (4.8-10.8)
[2022-10-13 12:04] LABS: CREATININE 6.36 mg/dL (0.55-1.30); THYROID STIMULATING HORMONE 1.75 uIu/mL (0.34-4.82); TOTAL BILIRUBIN 0.3 mg/dL (0.0-1.0); URIC ACID 4.8 mg/dL (2.4-7.0)
[2022-10-13 12:19] LABS: TOTAL IRON BIND. CAPACITY 230 ug/dL (250-450)
== END 2022-10-13 13:23 | disposition home or self-care (01) ==
LOC: SLB 09:45
PROVIDERS: ATTEND Internal Medicine
DX: Z01.818 Encounter for other preprocedural examination (principal); I12.0 Hypertensive chronic kidney disease with stage 5 chronic kidney disease or end stage renal disease; N18.6 End stage renal disease; D50.9 Iron deficiency anemia, unspecified; Z99.2 Dependence on renal dialysis; Z98.890 Other specified postprocedural states
CPT/HCPCS: 36415; 71046-TC; 80053; 80061; 83037; 83540; 83550; 83970; 84443; 84550; 85025; 93005

== ENCOUNTER 2022-11-12 17:33 | Outpatient (CLI) | payer OTHER | END 2022-11-12 18:52 | disposition home or self-care (01) | LOC: SLB 17:33 | PROVIDERS: ATTEND Internal Medicine | DX: Z11.52 Encounter for screening for COVID-19 (principal) | CPT/HCPCS: 36415; U0003; C9803 ==

== ENCOUNTER 2023-02-17 09:00 | Outpatient (CLI) | payer OTHER ==
[2023-02-17 07:09] LABS: BASOPHILS # (AUTO) 0.1 K/uL (0.0-0.2); BASOPHILS % (AUTO) 1.1 % (0.0-2.0); EOSINOPHILS # (AUTO) 0.4 K/uL (0.0-0.4); EOSINOPHILS % (AUTO) 4.4 % (0.0-4.0); HEMATOCRIT 34.2 % (36-54); HEMOGLOBIN 11.1 g/dL (14.0-18.0); LYMPHOCYTES # (AUTO) 2.1 K/uL (1.0-5.5); LYMPHOCYTES % (AUTO) 22.2 % (20.5-51.5); MEAN CORPUSCULAR HEMOGLOBIN 28 pg (27-31); MEAN CORPUSCULAR HGB CONC 33 % (32-36); MEAN CORPUSCULAR VOLUME 85 fL (79.0-98.0); MONOCYTES # (AUTO) 0.9 K/uL (0.0-1.0); MONOCYTES % (AUTO) 9.1 % (1.7-9.3); NEUTROPHILS # (AUTO) 5.9 K/uL (1.8-7.7); NEUTROPHILS % (AUTO) 63.2 % (40.0-70.0); PLATELET COUNT (AUTO) 188 K/uL (130-430); RED BLOOD CELL COUNT(AUTO) 4.01 MIL/uL (4.2-6.2); WHITE BLOOD COUNT (AUTO) 9.4 K/uL (4.8-10.8)
[2023-02-17 07:35] LABS: ALBUMIN 3.2 g/dL (3.4-4.8); CALCIUM 8.1 mg/dL (8.4-11.0); CREATININE 7.12 mg/dL (0.55-1.30); POTASSIUM 4.1 mmol/L (3.5-5.1); THYROID STIMULATING HORMONE 1.91 uIu/mL (0.34-4.82); TOTAL BILIRUBIN 0.3 mg/dL (0.0-1.0); TOTAL PROTEIN, SERUM 7.5 g/dL (6.4-8.3)
[2023-02-17 07:45] LABS: TOTAL IRON BIND. CAPACITY 182 ug/dL (250-450)
[2023-02-17 09:41] LABS: HEMOGLOBIN A1C 7.15 % (<5.7)
[2023-02-19 12:11] LABS: VIT D,1, 25-DIHYDROXY 11.7 pg/mL (24.8-81.5)
== END 2023-02-17 10:00 | disposition home or self-care (01) ==
LOC: SLB 09:00
PROVIDERS: ATTEND Internal Medicine
DX: E11.65 Type 2 diabetes mellitus with hyperglycemia (principal); E11.21 Type 2 diabetes mellitus with diabetic nephropathy; I10 Essential (primary) hypertension; D64.9 Anemia, unspecified
CPT/HCPCS: 36415; 80053; 80061; 82306; 82607; 83037; 83540; 83550; 83735; 84100; 84443; 85025

== ENCOUNTER 2023-08-03 08:50 | Outpatient (CLI) | payer OTHER ==
[2023-08-03 09:40] LABS: BASOPHILS # (AUTO) 0.1 K/uL (0.0-0.2); BASOPHILS % (AUTO) 0.8 % (0.0-2.0); EOSINOPHILS # (AUTO) 0.3 K/uL (0.0-0.4); EOSINOPHILS % (AUTO) 3.4 % (0.0-4.0); HEMATOCRIT 35.9 % (36-54); LYMPHOCYTES % (AUTO) 11.8 % (20.5-51.5); MEAN CORPUSCULAR HEMOGLOBIN 29 pg (27-31); MEAN CORPUSCULAR HGB CONC 33 % (32-36); MEAN CORPUSCULAR VOLUME 85 fL (79.0-98.0); MONOCYTES # (AUTO) 0.6 K/uL (0.0-1.0); MONOCYTES % (AUTO) 7.1 % (1.7-9.3); NEUTROPHILS # (AUTO) 6.2 K/uL (1.8-7.7); NEUTROPHILS % (AUTO) 76.9 % (40.0-70.0); PLATELET COUNT (AUTO) 199 K/uL (130-430); RED BLOOD CELL COUNT(AUTO) 4.21 MIL/uL (4.2-6.2); RED CELL DISTRIBUTION WIDTH 15.6 % (9.0-15.0); WHITE BLOOD COUNT (AUTO) 8.1 K/uL (4.8-10.8)
[2023-08-03 09:54] LABS: HEMOGLOBIN A1C 7.43 % (<5.7)
[2023-08-03 10:04] LABS: ALBUMIN 3.5 g/dL (3.4-4.8); CALCIUM 8.7 mg/dL (8.4-11.0); CREATININE 3.85 mg/dL (0.55-1.30); TOTAL BILIRUBIN 0.6 mg/dL (0.0-1.0); TOTAL PROTEIN, SERUM 7.5 g/dL (6.4-8.3)
[2023-08-03 10:05] LABS: THYROID STIMULATING HORMONE 1.76 uIu/mL (0.34-4.82)
[2023-08-04 16:29] LABS: BILIRUBIN,URINE NEGATIVE (NEGATIVE); CLARITY/URINE CLEAR (CLEAR); COLOR,URINE YELLOW (YELLOW); GLUCOSE,URINE 3+ (NEGATIVE); KETONES,URINE NEGATIVE (NEGATIVE); LEUKOCYTE ESTERASE ,URINE NEGATIVE (NEGATIVE); NITRITE, URINE NEGATIVE (NEGATIVE); PH,URINE 8.5 (5.0-8.0); PROTEIN URINE 3+ (NEGATIVE); UROBILINOGEN,URINE 0.2 (0.2-1.0)
[2023-08-04 16:31] LABS: BLOOD, URINE TRACE (NEGATIVE)
[2023-08-04 16:38] LABS: RBC,URINE 0-3 /HPF (0-3); WBC,URINE 0-3 /HPF (0-3)
[2023-08-04 16:39] LABS: BACTERIA,URINE RARE /HPF (None Seen)
== END 2023-08-03 18:38 | disposition home or self-care (01) ==
LOC: SLB 08:50
PROVIDERS: ATTEND Internal Medicine
DX: E11.40 Type 2 diabetes mellitus with diabetic neuropathy, unspecified (principal); I10 Essential (primary) hypertension; E78.5 Hyperlipidemia, unspecified; E55.9 Vitamin D deficiency, unspecified
CPT/HCPCS: 36415; 80053; 80061; 81000; 81001; 81015; 82306; 83037; 84443; 85025

== ENCOUNTER 2023-10-27 07:26 | Outpatient (CLI) | payer OTHER ==
[2023-10-27 08:31] LABS: BASOPHILS # (AUTO) 0.1 K/uL (0.0-0.2); BASOPHILS % (AUTO) 0.7 % (0.0-2.0); EOSINOPHILS # (AUTO) 0.4 K/uL (0.0-0.4); EOSINOPHILS % (AUTO) 4.5 % (0.0-4.0); HEMATOCRIT 35.2 % (36-54); HEMOGLOBIN 11.8 g/dL (14.0-18.0); MEAN CORPUSCULAR HEMOGLOBIN 28 pg (27-31); MEAN CORPUSCULAR HGB CONC 33 % (32-36); MEAN CORPUSCULAR VOLUME 84 fL (79.0-98.0); MONOCYTES # (AUTO) 0.8 K/uL (0.0-1.0); MONOCYTES % (AUTO) 8.7 % (1.7-9.3); NEUTROPHILS # (AUTO) 6.2 K/uL (1.8-7.7); NEUTROPHILS % (AUTO) 65.1 % (40.0-70.0); PLATELET COUNT (AUTO) 169 K/uL (130-430); RED CELL DISTRIBUTION WIDTH 15.4 % (9.0-15.0); WHITE BLOOD COUNT (AUTO) 9.5 K/uL (4.8-10.8)
[2023-10-27 08:54] LABS: HEMOGLOBIN A1C 8.3 % (<5.7)
[2023-10-27 09:35] LABS: ALBUMIN 3.1 g/dL (3.4-4.8); CALCIUM 8.2 mg/dL (8.4-11.0); CREATININE 6.6 mg/dL (0.55-1.30); POTASSIUM 4.6 mmol/L (3.5-5.1); THYROID STIMULATING HORMONE 1.51 uIu/mL (0.34-4.82); TOTAL BILIRUBIN 0.3 mg/dL (0.0-1.0); TOTAL PROTEIN, SERUM 7.6 g/dL (6.4-8.3)
== END 2023-10-27 18:00 | disposition home or self-care (01) ==
LOC: SLB 07:26
PROVIDERS: ATTEND Internal Medicine
DX: E11.65 Type 2 diabetes mellitus with hyperglycemia (principal); I10 Essential (primary) hypertension; E03.9 Hypothyroidism, unspecified
CPT/HCPCS: 36415; 80053; 80061; 83037; 84443; 85025

== ENCOUNTER 2023-11-13 08:10 | Outpatient (CLI) | payer OTHER ==
[2023-11-13] MEDS ORDERED: BARIUM SULFATE 135 ML SUSP.RECON (E-Z-HD) PO ONE (08:49)
== END 2023-11-13 20:57 | disposition home or self-care (01) ==
LOC: SRD 08:10
PROVIDERS: ATTEND Internal Medicine
DX: K21.9 Gastro-esophageal reflux disease without esophagitis (principal); R13.10 Dysphagia, unspecified
CPT/HCPCS: 74220

== ENCOUNTER 2024-02-29 08:37 | Outpatient (CLI) | payer OTHER ==
[2024-02-29 10:03] LABS: ALBUMIN 3.4 g/dL (3.4-4.8); CALCIUM 8.9 mg/dL (8.4-11.0); CREATININE 5.19 mg/dL (0.55-1.30); POTASSIUM 3.7 mmol/L (3.5-5.1); TOTAL BILIRUBIN 0.4 mg/dL (0.0-1.0)
[2024-02-29 10:39] LABS: BASOPHILS % (AUTO) 0.5 % (0.0-2.0); EOSINOPHILS # (AUTO) 0.4 K/uL (0.0-0.4); EOSINOPHILS % (AUTO) 5.8 % (0.0-4.0); HEMATOCRIT 36.8 % (36-54); HEMOGLOBIN 12.2 g/dL (14.0-18.0); LYMPHOCYTES # (AUTO) 1.3 K/uL (1.0-5.5); LYMPHOCYTES % (AUTO) 18.1 % (20.5-51.5); MEAN CORPUSCULAR HEMOGLOBIN 28 pg (27-31); MEAN CORPUSCULAR HGB CONC 33 % (32-36); MEAN CORPUSCULAR VOLUME 84 fL (79.0-98.0); MONOCYTES # (AUTO) 0.5 K/uL (0.0-1.0); MONOCYTES % (AUTO) 6.7 % (1.7-9.3); NEUTROPHILS # (AUTO) 4.9 K/uL (1.8-7.7); NEUTROPHILS % (AUTO) 68.9 % (40.0-70.0); PLATELET COUNT (AUTO) 84 K/uL (130-430); RED BLOOD CELL COUNT(AUTO) 4.39 MIL/uL (4.2-6.2); RED CELL DISTRIBUTION WIDTH 15.6 % (9.0-15.0); WHITE BLOOD COUNT (AUTO) 7.1 K/uL (4.8-10.8)
[2024-02-29 11:50] LABS: HEMOGLOBIN A1C 7.98 % (<5.7)
== END 2024-02-29 19:55 | disposition home or self-care (01) ==
LOC: SLB 08:37
PROVIDERS: ATTEND Internal Medicine
DX: I10 Essential (primary) hypertension (principal); E11.65 Type 2 diabetes mellitus with hyperglycemia; E55.9 Vitamin D deficiency, unspecified
CPT/HCPCS: 36415; 80053; 82306; 83037; 85025